=== PATIENT | female | born 1965 | race Caucasian/White ===

== ENCOUNTER 2018-11-28 18:15 | Emergency (ER) | payer OTHER, SELFPAY ==
[2018-11-28 18:17] VITALS: BP 166/81; PULSE 75; RESP 16; TEMP 36.4; O2SAT 97; BMI 31.8
--- NOTE | 2018-11-28 19:05 | ED.RN ---
PT AMBULATED FROM ER WITH SIGNIFICANT OTHER STATING SHE WOULD BE BACK IN THE MORNING
== END 2018-11-28 19:37 | disposition left against medical advice (07) ==
LOC: ED 19:35
PROVIDERS: Emergency Provider Emergency Medicine; Family Provider Internal Medicine; PCP Internal Medicine
DX: Z53.21 Procedure and treatment not carried out due to patient leaving prior to being seen by health care provider (principal)

== ENCOUNTER → 2018-11-29 11:03 | Outpatient (CLI) | payer OTHER, SELFPAY ==
[2018-11-28 18:17] VITALS: BMI 31.8
--- NOTE | 2018-11-29 11:14 | VDLE_ITS ---
Reason For Study: calf pain RIGHT LEFT CFV is compressible, spontaneous, phasic, GSV is normal. competent and demonstrates normal CFV is compressible, spontaneous, phasic, augmentation. competent, and demonstrates normal Procedure augmentation. Exam performed in department. FV is compressible, spontaneous, phasic, A preliminary report was called and/or faxed competent and demonstrates normal to DR PRATT. augmentation. POP V is compressible, spontaneous, phasic, competent and demonstrates normal augmentation. T/P Trunk is compressible. PTV is compressible. LT PerV is compressible. Interpretation Summary Deep veins of the left lower extremity are patent and compressible segmentally. There is no evidence of left lower extremity deep vein thrombosis. Valvular competence appears intact within the proximal deep venous system on the left . The left greater saphenous vein appears patent and compressible segmentally. Ordering Physician: Carline Pratt Referring Physician: Carline Pratt Performed By: Shital Davis, AIME, RVT
== END ==
PROVIDERS: Family Provider Internal Medicine; PCP Internal Medicine; Referring Provider Internal Medicine; Visit Provider Internal Medicine
DX: M79.662 Pain in left lower leg (principal)
CPT/HCPCS: 93971

== ENCOUNTER → 2020-01-06 13:18 | Outpatient (CLI) | payer OTHER, SELFPAY ==
--- NOTE | 2020-01-06 13:20 | BI_ITS ---
MAMMOGRAPHY - BILATERAL SCREENING 3-D TOMOSYNTHESIS REASON FOR EXAM: Female, 54 years old. Routine screening PERTINENT HISTORY: FAM HX OF SISTER @ AGE 67 - NO PREV SURG''S OTC HRT X 2 YRS - LOST 20#. TECHNIQUE: 2-D mammograms and 3-D Tomosynthesis of the breast (s) were performed. CAD was performed. COMPARISON: 2017 FINDINGS: The breast composition is composed of scattered fibroglandular density. Scattered benign calcifications are seen. No dense spiculated masses or suspicious microcalcifications are identified. No architectural distortion is identified. There is no skin thickening or retraction. There has been no significant change since the prior study. BI/SCREEN MAMM (CAD) W/MARIS BILAT IMPRESSION: No mammographic signs of malignancy. Routine yearly mammograms recommended. ASSESSMENT CATEGORY: BIRADS Category 2: Benign. A letter regarding these results will be sent to the patient by the facility within 30 days. FOLLOW UP RECOMMENDATION: Yearly follow up mammogram recommended. (A) Approximately 10% of breast cancers are not detected by mammography. A normal mammogram should not delay biopsy of a clinically suspicious abnormality. Electronically Signed: Oliver Colindres MD at 7:57 EDT , Service support ,
--- NOTE | 2020-01-06 13:33 | BD_ITS ---
STUDY: DUAL ENERGY X-RAY ABSORPTIOMETRY / DXA REASON FOR EXAM: Female, 54 years old. 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 COMPARISON: Comparison is made with prior study dated 05-04-11. FINDINGS: Lumbar Spine (L1-L4): g/cm2 (1.109) / T-score (-0.5) / Z-score (0.2) Findings are suggestive of normal bone density with a low fracture risk. Left Femur Total: g/cm2 (0.986) / T-score (-0.2) / Z-score (0.4) Left Femoral Neck: g/cm2 (1.012) / T-score (-0.2) / Z-score (0.8) Right Femur Total: g/cm2 (0.913) / T-score (-0.8) / Z-score (-0.2) Right Femoral Neck: g/cm2 (0.961) / T-score (-0.6) / Z-score (0.4) The T-Scores on the most recent prior examination were: Lumbar Spine (L1-L4): There has been worsening of bone density since the previous examination. Left Femur Total: which represents an improvement of 0.2%. Right Femur Total: which represents an improvement of 0.3%. BD/Dexa Bone Density Study IMPRESSION: The patient is considered normal as outlined below according to World Henry Organization (WHO) criteria with a low fracture risk. There has been improvement of bone density since the previous examination. Reference Information: The T-score is the number of standard deviations above or below the standard which is normal for young adults at their peak bone mineral density. The World Health Organization (WHO) interprets the T-scores as follows: Above -1 Normal bone density Between -1 and -2.5 Osteopenia Equal to / or below -2.5 Osteoporosis As a practical clinical guideline, osteopenia may be graded as follows: Mild -1 through -1.5 Moderate -1.6 through -2.0 Severe -2.1 through -2.4 The Z-score is the number of standard deviations above or below age-matched controls. A Z-score of less than -1.5 would be considered abnormal. References: 1. NIH Osteoporosis and Related Bone Diseases http://www.osteo.org 2. International Society for Clinical Densitometry http://www.iscd.org 3. National Osteoporosis Foundation http://www.nof.org Electronically Signed: Lemuel Ribeiro, at 13:19 EDT , Service support ,
== END ==
PROVIDERS: PCP Internal Medicine; Referring Provider Internal Medicine; Visit Provider Internal Medicine
DX: Z12.31 Encounter for screening mammogram for malignant neoplasm of breast (principal); Z78.0 Asymptomatic menopausal state
CPT/HCPCS: 77063; 77067; 77080

== ENCOUNTER 2021-09-22 07:43 | Outpatient (CLI) | payer OTHER, SELFPAY ==
--- NOTE | 2021-09-22 07:46 | BI_ITS ---
MAMMOGRAPHY - BILATERAL SCREENING REASON FOR EXAM: Female, 56 years old. Routine annual screening examination. PERTINENT HISTORY: Sister with breast cancer. TECHNIQUE: Digital bilateral breast maris (3D mammographic acquisition) in the CC and MLO projections. 2-D mediolateral oblique (MLO) and craniocaudad (CC) views of both breasts were obtained. CAD: Full Field Digital Mammography with Computer Added Detection was performed. COMPARISON: Comparison is made with prior study dated 01/06/2020. FINDINGS: Breast Composition: There are scattered areas of fibroglandular density. There are no dominant masses or suspicious calcifications. Stable benign-appearing bilateral axillary lymph nodes. No other significant abnormalities are identified. There has been no significant change since the prior study. BI/SCRN MAMM (CAD)W/MARIS BILAT IMPRESSION: Stable bilateral screening mammogram. Yearly follow-up mammogram recommended. (A) ASSESSMENT CATEGORY: BIRADS Category 2: Benign. A letter regarding these results will be sent to the patient by the facility within 30 days. Approximately 10% of breast cancers are not detected by mammography. A normal mammogram should not delay biopsy of a clinically suspicious abnormality. [id number] Electronically Signed: Lemuel Ribeiro MD at 8:55 EDT ,
== END 2021-09-22 23:59 | disposition home or self-care (01) ==
LOC: OPBI 07:44
PROVIDERS: PCP Internal Medicine; Visit Provider Internal Medicine
DX: Z12.31 Encounter for screening mammogram for malignant neoplasm of breast (principal)
CPT/HCPCS: 77063; 77067

== ENCOUNTER → 2023-08-14 | Outpatient (CLI) | payer OTHER, SELFPAY ==
--- NOTE | 2023-08-14 07:14 | CT_ITS ---
STUDY: CT ABDOMEN AND PELVIS WITHOUT CONTRAST REASON FOR EXAM: Female, 58 years old. LLQ Pain x few weeks RADIATION DOSAGE (If Supplied By Facility): CTDIvol = ( 11.76 ) mGy, DLP = ( 570.08 ) mGycm TECHNIQUE: Transaxial images were obtained from the dome of the diaphragm to the symphysis pubis with oral contrast, and without intravenous contrast. Sagittal and coronal images were reconstructed. Individualized dose optimization techniques were used for this CT. COMPARISON: None. FINDINGS: Minimal increased markings at the left lung base suggestive of left basilar atelectasis. The visualized portions of the heart are within normal limits. Normal liver. Normal gallbladder and extrahepatic biliary system. Normal spleen. Normal pancreas. Normal bilateral adrenal glands. Normal right kidney. Normal left kidney. Normal visualized stomach. Normal small intestine. Normal colon. The appendix is visualized and appears normal. There is scattered atherosclerotic calcification of the abdominal aorta, without a demonstrated aneurysm. Normal inferior vena cava. Normal retroperitoneum. Normal urinary bladder. Calcified phleboliths are seen in the pelvis. Normal abdominal wall. There are mild degenerative changes of the visualized lumbar spine. CT/Abdomen/Pelvis without Cont IMPRESSION: No acute abnormality is seen. Electronically Signed: Lemuel Ribeiro MD at 12:20 EST ,
--- OUTSIDE RECORDS SUMMARY | 2023-08-14 07:23 | XMS RPT_ITS | CCD ---
Author Name Unknown Address [address] [place] [address] Organization [facility] Care Team Providers Care Health Education Coordinator Name Role Phone Carline Pratt Unavailable Muriel Manuel Unavailable Tequila Dobbins Unavailable Unavailable Unavailable Unavailable Tiffany Ambrose Unavailable Unavailable Nhan Giraldo Unavailable [phone] Gravcarl, Sanjana Unavailable Unavailable Jack Cameron Unavailable Unavailable Jack Iraheta Unavailable Unavailable Jennifer Duggan Unavailable Unavailable Carline Pratt DO Unavailable [phone] Nhan Giraldo MD Unavailable [phone] Dr. Muriel Manuel MD Unavailable [phone] Jennifer Duggan LPN Unavailable Unavailable Unavailable Unavailable Gravcarl ALEXANDER, Sanjana Unavailable Unavailable Unavailable Unavailable Jack Iraheta LPN Unavailable Unavailable [place] CONTRACTING SPECIALIST, Rachel Unavailable Unavailable Unavailable Carline Pratt DO Unavailable Carline Pratt DO Primary Care Provider Carline Pratt DO Primary Care Provider Carline Pratt DO Attending Unavailable Carline Pratt DO Referring Unavailable Carline Pratt DO Consulting Unavailable Hugo EDMONDS, Eula Allen Primary Care Provider JOSE GILL Referring Unavailable JOSE GILL Attending Unavailable CARLINE PRATT Primary Care Unavailab JOSE Rios Referring Unavailable CARLINE PRATT Primary Care Unavailab LUCITA Bruno Referring Unavailable TERENCE, CARLINE TEQUILA Primary Care Unavailab chandra PRATT, CARLINE VU Primary Care Unavailab le DEBENEDICTGILL ALDRICH Attending Unavailab JOSE Rios Referring Unavailable TALAMPAS, EULA D Primary Care Unavailable TALAMPAS, EULA D Attending Unavailable BARBOSA, GRICELDA Referring Unavailable TALAMPAS, EULA D Primary Care Unavailable TALAMPAS, EULA D Primary Care Unavailable BARBOSA, GRICELDA Referring Unavailable TALAMPAS, EULA D Primary Care Unavailable BARBOSA, GRICELDA Referring Unavailable TALAMPAS, EULA D Primary Care Unavailable BARBOSA, GRICELDA Attending Unavailable Medications Current Medications Medication Drug Class(es) Dates Sig (Normalized) Sig (Original) ASCORBIC [id number] ORAL (6 sources) End: 10-17-2022 ASCORBIC [id number] ORAL Take by mouth. 0 10/17/2022 Discontinued Completed/Discontinued Medications Medication Drug Class(es) Dates Sig (Normalized) Sig (Original) amoxicillin 875 mg / clavulanate 125 mg oral tablet (8 sources) Penicillin-class Antibacterial Start: 12-16-2021 End: 03-24-2022 take 1 tablet by mouth twice daily Amoxicillin-Pot Clavulanate 875-125 MG Oral Tablet 1 (one) Tablet bid for 0 days Quantity: 20 {Tablet} Refills: 0 Ordered: 24-Mar-2022 Jack Iraheta LPN Start : 16-Dec-2021 End : 24-Mar-2022 Inactive Problems Active Problems Problem Classification Problem Date Documented Da te Episodic/Chronic Allergic reactions (20 sources) Contact dermatitis due to poison harriett; Translations: [Poison harriett] Resolved: 04-17-2011 05-04-2015 Episodic Anxiety disorders (10 sources) Generalized anxiety disorder; Translations: [Generalized anxiety disorder] Onset: 08-15-2005 02-06-2020 Chronic Asthma (20 sources) Extrinsic asthma, unspecified; Translations: [Allergic asthma] Resolved: 09-07-2009 10-13-2014 Chronic Past or Other Problems Problem Classification Problem Date Documented Da te Episodic/Chronic Blindness and vision defects (11 sources) Blurring of visual image; Translations: [Blurred vision, bilateral] Onset: 10-17-2022 12-15-2021 Episodic Cancer of cervix (10 sources) Atypical squamous cells of undetermined significance on cervical Papanicolaou smear; Translations: [Atypical squamous cells of undetermined significance on cytologic smear of cervix (ASC-US)] Onset: 05-23-2016 05-23-2016 Episodic Chronic obstructive pulmonary disease and bronchiectasis (20 sources) Bronchitis, not specified as acute or chronic; Translations: [BRONCHITIS, NOS (490.)] Resolved: 10-18-2009 10-13-2014 Episodic Deficiency and other anemia (20 sources) Anemia; Translations: [Anemia] Onset: 10-17-2022 03-01-2017 Episodic Headache; including migraine (20 sources) Headache; Translations: [Headache] Resolved: 10-18-2009 03-23-2015 Episodic Immunizations and screening for infectious disease (20 sources) Need for prophylactic vaccination and inoculation against influenza; Translations: [Needs influenza immunization] Onset: 10-17-2022 03-25-2020 Episodic Other circulatory disease (1 source) H/O: rheumatic fever; Translations: [Personal history of other diseases of the circulatory system] Onset: 10-17-2022 05-25-2023 Episodic Other connective tissue disease (20 sources) Lateral epicondylitis; Translations: [Tennis elbow] Onset: 10-17-2022 Resolved: 10-18-2009 05-28-2015 Episodic Results Test Name Value Interpretation Reference Range Facil ity Vital Signs Date Time Vital Sign Value Performing Clinician Facility 05-25-2023 08:08-0500 Body height 161 cm Eula Arias MD Work Phone: [facility] 05-25-2023 08:08-0500 Body temperature 98.4 [degF] Eula Arias MD Work Phone: [facility] 05-25-2023 08:08-0500 Body weight 90.27 kg Eula Arias MD Work Phone: [facility] 05-25-2023 08:08-0500 Diastolic blood pressure 62 mm[Hg] Eula Arias MD Work Phone: [facility] 05-25-2023 08:08-0500 Heart rate 74 /min Eula Arias MD Work Phone: [facility] 05-25-2023 08:08-0500 Respiratory rate 18 /min Eula Arias MD Work Phone: [facility] 05-25-2023 08:08-0500 SaO2% (BldA) [Mass fraction] 97 % Eula Arias MD Work Phone: [facility] 05-25-2023 08:08-0500 Systolic blood pressure 108 mm[Hg] Eula Arias MD Work Phone: [facility] 04-26-2023 09:06-0500 Body temperature 98.1 [degF] Jeane Athy PA-C Work Phone: [facility] 04-26-2023 09:06-0500 Body weight 90.27 kg Jeane Athy PA-C Work Phone: [facility] 04-26-2023 09:06-0500 Diastolic blood pressure 84 mm[Hg] Ejane Athy PA-C Work Phone: [facility] 04-26-2023 09:06-0500 Heart rate 68 /min Jeane Athy PA-C Work Phone: [facility] 04-26-2023 09:06-0500 Respiratory rate 18 /min Jeane Athy PA-C Work Phone: [facility] 04-26-2023 09:06-0500 SaO2% (BldA) [Mass fraction] 97 % Jeane Athy PA-C Work Phone: [facility] 04-26-2023 09:06-0500 Systolic blood pressure 129 mm[Hg] Jeane Athy PA-C Work Phone: [facility] 10-17-2022 07:03-0400 Body height 160 cm Gricelda Barbosa MANAGER GREEN[employer]GOLF SALES ASSOCIATE Work Phone: [facility] 10-17-2022 07:03-0400 Body weight 87.09 kg Gricelda Barbosa MANAGER GREEN[employer]OLF SALES ASSOCIATE Work Phone: [facility] 10-17-2022 07:03-0400 Diastolic blood pressure 82 mm[Hg] Gricelda Barbosa MANAGER GREEN[employer]OLF SALES ASSOCIATE Work Phone: [facility] 10-17-2022 07:03-0400 Heart rate 66 /min Gricelda Bricenos MANAGER GREEN[employer]OLF SALES ASSOCIATE Work Phone: [facility] 10-17-2022 07:03-0400 Respiratory rate 16 /min Gricelda Bricenos MANAGER GREEN[employer]OLF SALES ASSOCIATE Work Phone: [facility] 10-17-2022 07:03-0400 SaO2% (BldA) [Mass fraction] 98 % Gricelda Bricenos MANAGER GREEN[employer]OLF SALES ASSOCIATE Work Phone: [facility] 10-17-2022 07:03-0400 Systolic blood pressure 120 mm[Hg] Gricelda Barbosa MANAGER GREEN[employer]OLF SALES ASSOCIATE Work Phone: [facility] 12-15-2021 13:38-0400 Body height 158.75 cm Sanjana Man [facility] Work Phone: 12-15-2021 13:38-0400 Body mass index (BMI) [Ratio] 35.46 kg/m2 Sanjana [facility]; [facility] Work Phone: 12-15-2021 13:38-0400 Body surface area Derived from formula 1.91 m2 [facility] Work Phone: 12-15-2021 13:38-0400 Body temperature 97.3 [degF] Sanjana Man [facility] Comprehensiv e Internal Medicine; [facility] Work Phone: Encounters Encounter Date Encounter Type Care Provider Facility Start: 05-25-2023 End: 05-26-2023 ambulatory EULA ARIAS Facility:[facility] Start: 05-25-2023 End: 05-25-2023 Office outpatient visit 25 minutes Eula Arias MD Work Phone: Internal Medicine [place] Procedures Date Procedure Procedure Detail Performing Clinician Start: 04-26-2023 Urnls dip stick/tablet rgnt auto w/o microscopy Swati Greco MANAGER GREEN.CONTRACTING SPECIALIST Work Phone: Start: 10-19-2022 End: 10-19-2022 Mammography Gricelda Barbosa MANAGER GRE[employer] SALES ASSOCIATE Work Phone: Start: 10-17-2022 Lipid 1996 panel - Serum or Plasma Screen [facility] Start: 08-17-2022 Computerized ophthalmic imaging retina Jose Gill MD, PhD Work Phone: Start: 05-18-2022 Computerized ophthalmic imaging retina Jose Gill MD, PhD Work Phone: Start: 02-23-2022 Fundus photography w/interpretation & report Castillo Jacobsen MD Work Phone: Start: 02-23-2022 Computerized ophthalmic imaging retina Javier Hernandez MD Work Phone: Start: 09-22-2021 End: 09-22-2021 SCRN MAMM (CAD)W/MARIS BILAT Comments: See Note; NOTES: [facility] Imaging Services [address] [place] [address] SCRN MAMM (CAD)W/MARIS BILAT MR#: [id number] Acct: [id number] Name: ADRIANNE CHAIDEZ Rep #: [id number] : 1965 F 56 From: [address]uel [address] MD PCP: Dr. Carline Pratt, Status: [facility] Study: SCRN MAMM (CAD)W/MARIS BILAT Date of Exam: 01/06 Exam# [id number] Ordering Dr: Carline Pratt DO MAMMOGRAPHY - BILATERAL SCREENING REASON FOR EXAM: Female, 56 years old. Routine annual screening examination. PERTINENT HISTORY: Sister with breast cancer. TECHNIQUE: Digital bilateral breast maris (3D mammographic acquisition) in the CC and MLO projections. 2-D mediolateral oblique (MLO) and craniocaudad (CC) views of both breasts were obtained. CAD: Full Field Digital Mammography with Computer Added Detection was performed. COMPARISON: Comparison is made with prior study dated 01/06/2020. FINDINGS: Breast Composition: There are scattered areas of fibroglandular density. There are no dominant masses or suspicious calcifications. Stable benign-appearing bilateral axillary lymph nodes. No other significant abnormalities are identified. There has been no significant change since the prior study. BI/SCRN MAMM (CAD)W/MARIS BILAT IMPRESSION: Stable bilateral screening mammogram. Yearly follow-up mammogram recommended. (A) ASSESSMENT CATEGORY: BIRADS Category 2: Benign. A letter regarding these results will be sent to the patient by the facility within 30 days. Approximately 10% of breast cancers are not detected by mammography. A normal mammogram should not delay biopsy of a clinically suspicious abnormality. [id number] Electronically Signed: Lemuel Ribeiro MD at 8:55 EDT Reading Location ID and State: [facility] / [place] , Service support , CC: Dr. Carline Pratt DO Manager Web: Signed Carline Pratt DO Work Phone: Start: 06-21-2021 End: 06-21-2021 Urgent Care Visit Report Comments: See Note; NOTES: [facility] [address] [place] [address] OFFICE VISIT Date of Service: 06/21/21 MR#: [id number] Acct: [id number] Name: ADRIANNE CHAIDEZ Rep #: [id number] : 1965 Provider: GUALBERTO Cheek Age/Sex: 56/F Location: [facility] [place] Status: Signed Intake Vital Signs 06/21/21 08:37 Height 5 ft 3 in Weight: 199 lb BMI 35.2 BP 118/72 Blood Pressure Location Lt brachial Position Sitting Respiration 16 Pulse 67 Pulse Source Monitor Temp 97.5 F L Temp Source Temporal Pulse Oximetry (%) 98 Oxygen Delivery Method room air Intake Visit Reasons: SORE THOAT Allergies No Known Allergies Allergy (Verified 11/28/18 18:16) [facility] Social History Smoking Status: Never smoker HPI HPI Details: ADRIANNE CHAIDEZ, is a 56 F who presents to the office today for complaint of sore throat for the past 2 days. Patient describes a sore throat as itchy and made worse with postnasal drainage. She denies fever, chills, sweats. No cough, shortness of breath or difficulty breathing. No nausea, vomiting or diarrhea. No loss of taste or smell. Patient is concerned that she may have had exposure to Covid recently and is requesting a Covid test. No other associated symptoms or alleviating/aggravating factors. ROS Const Constitutional: Positive for other (6 system ROS completed with pertinent findings in the HPI otherwise normal.) Exam Const General: cooperative and healthy appearing HENMT Head: normal to inspection Ears: hearing grossly normal bilaterally, TM's normal bilaterally and EAC's normal Nose: external nose normal and nasal discharge clear Mouth: oral mucosae normal Throat: abnormal tonsil bilaterally Resp Effort Inspection: normal respiratory effort Auscultation: Bilateral: Clear to Auscultation Cardio Palpation: normal PMI Rate: regular rate Rhythm: regular rhythm Neuro General: patient alert and CN's II-XI intact bilaterally Psych Appearance: grossly normal Mental Status: mental status grossly normal Results POC SARS AG POC SARS AG Negative Last Edit by Vanessa Garvey on 06/21/21 08:50 Coding Level of Care Code Off vis,new,level 3 Diagnoses Acute pharyngitis J02.9 Assessment and Plan Assessment and Plan (1) Acute pharyngitis: Status: Acute Plan - GUALBERTO De Santiago: Patient tested negative for Covid in the office today. Encouraged to get plenty of rest, drink lots of clear liquids, and use Tylenol or Ibuprofen (unless contraindicated) for fever and comfort. Patient also educated on other symptomatic management techniques. To be seen in 7-10 days if no improvement; sooner if worsening of symptoms. Patient verbalized understanding and agreement with all the above. Plan Details Other Orders: Orders: POC Rapid SARS Antigen Today 06/21/21 1155 <Electronically signed by Joe BURCIAGA> Date Joe Arboleda Signature: Date (if applicable) CC: Carline Pratt DO Work Phone: Start: 02-09-2020 Yamil Hernandez MD Work Phone: Start: 01-06-2020 End: 01-12-2020 Dexa Bone Density Study Comments: See Note; NOTES: [facility] Imaging Services [address] [place] [address] Dexa Bone Density Study MR#: [id number] Acct: [id number] Name: ADRIANNE CHAIDEZ Rep #: [id number] : 1965 F 54 From: [address] MD PCP: Dr. Carline Pratt, [facility] Study: Dexa Bone Density Study Date of Exam: 01/06/20 Exam# [id number] Ordering Dr: Carline Pratt DO STUDY: DUAL ENERGY X-RAY ABSORPTIOMETRY / DXA REASON FOR EXAM: Female, 54 years old. 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 COMPARISON: Comparison is made with prior study dated 05-04-11. FINDINGS: Lumbar Spine (L1-L4): g/cm2 (1.109) / T-score (-0.5) / Z-score (0.2) Findings are suggestive of normal bone density with a low fracture risk. Left Femur Total: g/cm2 (0.986) / T-score (-0.2) / Z-score (0.4) Left Femoral Neck: g/cm2 (1.012) / T-score (-0.2) / Z-score (0.8) Right Femur Total: g/cm2 (0.913) / T-score (-0.8) / Z-score (-0.2) Right Femoral Neck: g/cm2 (0.961) / T-score (-0.6) / Z-score (0.4) The T-Scores on the most recent prior examination were: Lumbar Spine (L1-L4): There has been worsening of bone density since the previous examination. Left Femur Total: which represents an improvement of 0.2%. Right Femur Total: which represents an improvement of 0.3%. BD/Dexa Bone Density Study IMPRESSION: The patient is considered normal as outlined below according to World Henry Organization (WHO) criteria with a low fracture risk. There has been improvement of bone density since the previous examination. Reference Information: The T-score is the number of standard deviations above or below the standard which is normal for young adults at their peak bone mineral density. The World Health Organization (WHO) interprets the T-scores as follows: Above -1 Normal bone density Between -1 and -2.5 Osteopenia Equal to / or below -2.5 Osteoporosis As a practical clinical guideline, osteopenia may be graded as follows: Mild -1 through -1.5 Moderate -1.6 through -2.0 Severe -2.1 through -2.4 The Z-score is the number of standard deviations above or below age-matched controls. A Z-score of less than -1.5 would be considered abnormal. References: 1. NIH Osteoporosis and Related Bone Diseases http://www.osteo.org 2. International Society for Clinical Densitometry http://www.iscd.org 3. National Osteoporosis Foundation http://www.nof.org Electronically Signed: Lemuel Ribeiro, at 13:19 EDT , Service support , CC: Dr. Carline Pratt, Manager Web: Signed Carline Pratt Work Phone: Start: 01-06-2020 End: 01-07-2020 SCREEN MAMM (CAD) W/MARIS BILAT Comments: See Note; NOTES: [facility] Imaging Services [address] [place] [address] SCREEN MAMM (CAD) W/MARIS BILAT MR#: [id number] Acct: [id number] Name: ADRIANNE CHAIDEZ Rep #: [id number] : 1965 F 54 From: Kiran Colindres MD PCP: Dr. Carline Pratt DO Status: REG [facility] Study: SCREEN MAMM (CAD) W/MARIS BILAT Date of Exam: 0 01/06/20 Exam# [id number] Ordering Dr: Carline Pratt DO MAMMOGRAPHY - BILATERAL SCREENING 3-D TOMOSYNTHESIS REASON FOR EXAM: Female, 54 years old. Routine screening PERTINENT HISTORY: FAM HX OF SISTER @ AGE 67 - NO PREV SURG''S OTC HRT X 2 YRS - LOST 20#. TECHNIQUE: 2-D mammograms and 3-D Tomosynthesis of the breast (s) were performed. CAD was performed. COMPARISON: 2017 FINDINGS: The breast composition is composed of scattered fibroglandular density. Scattered benign calcifications are seen. No dense spiculated masses or suspicious microcalcifications are identified. No architectural distortion is identified. There is no skin thickening or retraction. There has been no significant change since the prior study. BI/SCREEN MAMM (CAD) W/MARIS BILAT IMPRESSION: No mammographic signs of malignancy. Routine yearly mammograms recommended. ASSESSMENT CATEGORY: BIRADS Category 2: Benign. A letter regarding these results will be sent to the patient by the facility within 30 days. FOLLOW UP RECOMMENDATION: Yearly follow up mammogram recommended. (A) Approximately 10% of breast cancers are not detected by mammography. A normal mammogram should not delay biopsy of a clinically suspicious abnormality. Electronically Signed: Oliver Colindres MD at 7:57 EDT , Service support , CC: Dr. Carline Pratt DO Manager Web: Signed Carline Pratt Work Phone: Start: 11-29-2018 End: 11-29-2018 Venous Duplex Lower Extremity Comments: See Note; NOTES: [facility] Services [address] [place] [address] Venous Duplex US, Unilateral 11/29/18 1120 MR#: [id number] Acct: [id number] Name: ADRIANNE CHAIDEZ Rep #: [id number] : 1965 53 From: Jarrod Hannon MD Attending Dr: Carline Pratt DO Status: REG CLI Ordering Dr: Carline Pratt DO Date: 11/29/18 Location: [facility] Sex: F C Admitted: Reason For Study: calf pain RIGHT LEFT CFV is compressible, spontaneous, phasic, GSV is normal. competent and demonstrates normal CFV is compressible, spontaneous, phasic, augmentation. competent, and demonstrates normal Procedure augmentation. Exam performed in department. FV is compressible, spontaneous, phasic, A preliminary report was called and/or faxed competent and demonstrates normal to DR PRATT. augmentation. POP V is compressible, spontaneous, phasic, competent and demonstrates normal augmentation. T/P Trunk is compressible. PTV is compressible. LT PerV is compressible. Interpretation Summary Deep veins of the left lower extremity are patent and compressible segmentally. There is no evidence of left lower extremity deep vein thrombosis. Valvular competence appears intact within the proximal deep venous system on the left . The left greater saphenous vein appears patent and compressible segmentally. Ordering Physician: Carline Pratt Referring Physician: Carline Pratt Performed By: Shital Davis, AIME, RVT 11/29/18 1620 Date Jarrod Hannon MD CC: Carline Pratt DO Date Dictated: 11/29/18 1120 Date Transcribed: 11/29/18 1620 Manager Web: Signed Carline Pratt Work Phone: Start: 05-28-2017 Mammography Javier Hernandez MD Work Phone: Plan of Treatment Date Care Activity Detail Author Start: 10-18-2027 Lipid 1996 panel - Serum or Plasma Lipid Screening [facility] Start: 10-18-2027 LIPID SCREEN LIPID SCREEN [facility] Start: 10-17-2025 DIABETES SCREEN DIABETES SCREEN [facility] Start: 10-17-2025 Diabetes Screening Diabetes Screenin g [facility] Start: 02-08-2025 Colonoscopy COLONOSCOPY [facility] Start: 02-08-2025 COLORECTAL CANCER SCREENING COLORECTAL CANCER SCREENING [facility] Start: 11-17-2023 End: 02-16-2024 CBC panel - Blood by Automated count CBC Lab Routine Encounter for long-term current use of medication Expected: 11/17/2023 (Approximate), Expires: 02/16/2024 [facility] Work Phone: Immunizations Immunization Date Immunization Notes Care Provider Alex sauer 03-17-2023 Influenza, injectabl e, Madin Montgomery Canine Kidney, preservative free, quadrivalent Eula Arias MD Work Phone: [facility] 05-27-2022 zoster vaccine recombinant Gricelda Barbosa MANAGER GREEN[employer]OLF SALES ASSOCIATE Work Phone: [facility] Work Phone: 03-25-2022 Influenza, injectabl e, Madin Montgomery Canine Kidney, preservative free, quadrivalent Gricelda Barbosa MANAGER GREEN[employer]GOLF SALES ASSOCIATE Work Phone: [facility] Work Phone: 03-25-2022 zoster vaccine recombinant Gricelda Barbosa MANAGER GREEN[employer]GOLF SALES ASSOCIATE Work Phone: [facility] Work Phone: 03-25-2022 influenza virus vaccine, unspecified formulation Screen Wstr [facility] 10-01-2021 COVID-19 original vaccine, age 12+ yr, monovalent (PFIZER-BIONTECH - NAVARRETE TOP) Gricelda Barbosa MANAGER GREEN.GOLF SALES ASSOCIATE Work Phone: [facility] Work Phone: 04-30-2021 COVID-19 original vaccine, age 12+ yr, monovalent (PFIZER-BIONTECH - PURPLE TOP) Gricelda Barbosa MANAGER GREEN.GOLF SALES ASSOCIATE Work Phone: [facility] Work Phone: 04-18-2021 COVID-Pfizer (30 MCG/0.3 ML) Carline Pratt DO Work Phone: [facility] Work Phone: 03-17-2021 Influenza, injectabl e, Madin Montgomery Canine Kidney, preservative free, quadrivalent Gricelda Barbosa MANAGER GREEN.GOLF SALES ASSOCIATE Work Phone: [facility] Work Phone: 09-23-2020 COVID-19 original vaccine, full dose, monovalent (MODERNA) Gricelda Barbosa MANAGER GREEN.GOLF SALES ASSOCIATE Work Phone: [facility] Work Phone: 08-26-2020 COVID-19 original vaccine, full dose, monovalent (MODERNA) Gricelda Barbosa MANAGER GREEN.GOLF SALES ASSOCIATE Work Phone: [facility] Work Phone: 06-18-2020 COVID-Moderna (100 MCG/0.5 ML) Carline Pratt DO Work Phone: [facility] Work Phone: 03-14-2020 influenza, injectabl e, quadrivalent, preservative free Gricelda Barbosa MANAGER GREEN.GOLF SALES ASSOCIATE Work Phone: [facility] Work Phone: 03-04-2019 influenza, injectabl e, quadrivalent, preservative free Gricelda Barbosa MANAGER GREEN.GOLF SALES ASSOCIATE Work Phone: [facility] Work Phone: 04-02-2018 influenza, injectabl e, quadrivalent, preservative free Gricelda Barbosa MANAGER GREEN.GOLF SALES ASSOCIATE Work Phone: [facility] Work Phone: 02-09-2000 diphtheria and tetan us toxoids, adsorbed for pediatric use Javier Hernandez MD Work Phone: [facility] Work Phone: Payers Date Payer Category Payer Private Health Insurance [id number] 2019 Private Health Insurance [id number] 2019 Private Health Insurance [id number] 2018 Unknown [id number] 2012 Unknown [id number] 2009 Private Health Insurance [id number] 2006 Private Health Insurance [id number] 1966 Unknown [id number] Unknown Unknown [id number] Social History Date Type Detail Facility Start: 06-30-2022 End: 10-10-2022 Caffeine Use Caffeine Use [facility] Work Phone: Functional Status Date Assessment Result Facility 03-12-2020 LP-IR Score LP-IR Score 30 [facility] Work Phone: Clinical Notes 02-23-2022 to 05-25-2023 Eula Arias MD - 05/25/2023 8:05 AM Jeane House PA-C - 04/26/2023 9:42 AM ESTLetter - Mammography Coordinator - 10/19/2022 12:27 PM Shruthi Willoughby Mammo Tech - 10/19/2022 7:30 AM EDT Note Date & Type Note Facility 05-25-2023 Note HNO ID: [id number] Author: Eula Arias MD Service: ? Author Type: Physician Type: Progress Notes Filed: 05/25/2023 12:08 PM Note Text: This note was created using NoteWriter. Subjective Adrianne Chaidez is a 58 year old female. HISTORY Adrianne Chaidez is a 58 year old lady here to be formally established with me. Established with us at Routine Medical appointment with WILLIAM Marino in October 2022. 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 Noted sister from complications of liver cirrhosis that was just recently diagnosed before she . Does not know the cause of the cirrhosis. Discussed common causes. She walks daily. Eats healthy diet. Uses olive oil (EVOO) only. 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 THERAPEUTIC MULTIVITAMIN TAB one tab daily furosemide (LASIX) 20 mg tablet Take 1 tablet by mouth once daily as needed (lower extremity edema). No current facility-administered medications for this visit. ALLERGIES No Known Allergies PAST SURGICAL HISTORY Procedure Laterality Date ANKLE RIGHT 06/15/2012 surgery COLONOSCOPY 2012 COLPOSCOPY CERVIX UPPER/ADJACENT VAGINA 08/26/2004 mild to moderate dysplasia of cervix KERATOMILEUSIS Bilateral Dr. Rodriguez FAMILY HISTORY Problem Relation Age of Onset Hypertension Mother Diabetes Mother Cancer Father laryngeal Diabetes Sister Colon Cancer Sister 50 2014-16 yr remission Diabetes Sister other (Liver cirrhosis [other]) Sister Breast Cancer Sister 63 lumpectomy/chemo 2012 Colon Cancer Brother 74 Hypertension Brother Stroke Brother Diabetes Brother Cancer Other liver-niece Social History Tobacco Use Smoking status: Never Passive exposure: Never Smokeless tobacco: Never Vaping Use Vaping Use: Never used Substance Use Topics Alcohol use: Yes Comment: 1-2 per month Drug use: No Review of Systems Objective BP 108/62 Pulse 74 Temp 36.9 ?C (98.4 ?F) Resp 18 Ht 161 cm (5' 3.39 ) Wt 90.3 kg (199 lb) LMP 07/19/2019 (Approximate) SpO2 97% BMI 34.82 kg/m? Last 5 Encounter Wt Readings: Date: Wt: 05/25/2023 90.3 kg (199 lb) 04/26/2023 90.3 kg (199 lb) 10/17/2022 87.1 kg (192 lb) 02/06/2020 80.7 kg (178 lb) 12/24/2019 80.7 kg (178 lb) No waist measurement recorded Estimated body mass index is 34.82 kg/m? as calculated from the following: Height as of this encounter: 161 cm (5' 3.39 ). Weight as of this encounter: 90.3 kg (199 lb). Last 5 Encounter BP Readings: Date: BP: 05/25/2023 108/62 04/26/2023 129/84 10/17/2022 120/82 02/09/2020 112/74 12/24/2019 140/87 Physical Exam Vitals reviewed. Constitutional: Appearance: Normal appearance. She is well-developed. She is obese. HENT: Head: Normocephalic and atraumatic. Right Ear: External ear normal. Left Ear: External ear normal. Nose: Nose normal. Mouth/Throat: Mouth: Mucous membranes are moist. Pharynx: Oropharynx is clear. Eyes: Conjunctiva/sclera: Conjunctivae normal. Neck: Thyroid: No thyromegaly. Vascular: No carotid bruit. Cardiovascular: Rate and Rhythm: Normal rate and regular rhythm. Pulses: Normal pulses. Heart sounds: Normal heart sounds. No murmur heard. No friction rub. No gallop. Pulmonary: Effort: Pulmonary effort is normal. Breath sounds: Normal breath sounds. Abdominal: General: Bowel sounds are normal. There is no distension. Palpations: Abdomen is soft. There is no mass. Tenderness: There is no abdominal tenderness. Musculoskeletal: General: No deformity. Normal range of motion. Right lower leg: No edema. Left lower leg: No edema. Lymphadenopathy: Cervical: No cervical adenopathy. Skin: General: Skin is warm and dry. Coloration: Skin is not jaundiced or pale. Findings: No rash. Neurological: General: No focal deficit present. Mental Status: She is alert and oriented to person, place, and time. Cranial Nerves: No cranial nerve deficit. Sensory: No sensory deficit. Motor: No abnormal muscle tone. Coordination: Coordination normal. Deep Tendon Reflexes: Reflexes normal. Psychiatric: Attention and Perception: Attention and perception normal. Mood and Affect: Mood and affect normal. Speech: Speech normal. Behavior: Behavior normal. Thought Content: Thought content normal. Cognition and Memory: Cognition normal. Judgment: Judgment normal. Labs done after saw Gricelda: Component Latest Ref Rng AND Units 10/17/2022 WBC 3.70 - 11.00 k/uL 8.31 RBC 3.90 - 5.20 m/uL 4.36 (more content not included)... [facility] 05-25-2023 History of Present illness Narrative This note was created using NoteWriter. Subjective Adrianne Chaidez is a 58 year old female. HISTORY Adrianne Chaidez is a 58 year old lady here to be formally established with me. Established with us at Routine Medical appointment with WILLIAM Marino in October 2022. 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 Noted sister from complications of liver cirrhosis that was just recently diagnosed before she . Does not know the cause of the cirrhosis. Discussed common causes. She walks daily. Eats healthy diet. Uses olive oil (EVOO) only. 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 THERAPEUTIC MULTIVITAMIN TAB one tab daily furosemide (LASIX) 20 mg tablet Take 1 tablet by mouth once daily as needed (lower extremity edema). No current facility-administered medications for this visit. ALLERGIES No Known Allergies PAST SURGICAL HISTORY Procedure Laterality Date ANKLE RIGHT 06/15/2012 surgery COLONOSCOPY 2012 COLPOSCOPY CERVIX UPPER/ADJACENT VAGINA 08/26/2004 mild to moderate dysplasia of cervix KERATOMILEUSIS Bilateral Dr. Rodriguez FAMILY HISTORY Problem Relation Age of Onset Hypertension Mother Diabetes Mother Cancer Father laryngeal Diabetes Sister Colon Cancer Sister 50 2014-16 yr remission Diabetes Sister other (Liver cirrhosis [other]) Sister Breast Cancer Sister 63 lumpectomy/chemo 2012 Colon Cancer Brother 74 Hypertension Brother Stroke Brother Diabetes Brother Cancer Other liver-niece Social History Tobacco Use Smoking status: Never Passive exposure: Never Smokeless tobacco: Never Vaping Use Vaping Use: Never used Substance Use Topics Alcohol use: Yes Comment: 1-2 per month Drug use: No Review of Systems Objective BP 108/62 Pulse 74 Temp 36.9 C (98.4 F) Resp 18 Ht 161 cm (5' 3.39 ) Wt 90.3 kg (199 lb) LMP 07/19/2019 (Approximate) SpO2 97% BMI 34.82 kg/m Last 5 Encounter Wt Readings: Date: Wt: 05/25/2023 90.3 kg (199 lb) 04/26/2023 90.3 kg (199 lb) 10/17/2022 87.1 kg (192 lb) 02/06/2020 80.7 kg (178 lb) 12/24/2019 80.7 kg (178 lb) No waist measurement recorded Estimated body mass index is 34.82 kg/m as calculated from the following: Height as of this encounter: 161 cm (5' 3.39 ). Weight as of this encounter: 90.3 kg (199 lb). Last 5 Encounter BP Readings: Date: BP: 05/25/2023 108/62 04/26/2023 129/84 10/17/2022 120/82 02/09/2020 112/74 12/24/2019 140/87 Physical Exam Vitals reviewed. Constitutional: Appearance: Normal appearance. She is well-developed. She is obese. HENT: Head: Normocephalic and atraumatic. Right Ear: External ear normal. Left Ear: External ear normal. Nose: Nose normal. Mouth/Throat: Mouth: Mucous membranes are moist. Pharynx: Oropharynx is clear. Eyes: Conjunctiva/sclera: Conjunctivae normal. Neck: Thyroid: No thyromegaly. Vascular: No carotid bruit. Cardiovascular: Rate and Rhythm: Normal rate and regular rhythm. Pulses: Normal pulses. Heart sounds: Normal heart sounds. No murmur heard. No friction rub. No gallop. Pulmonary: Effort: Pulmonary effort is normal. Breath sounds: Normal breath sounds. Abdominal: General: Bowel sounds are normal. There is no distension. Palpations: Abdomen is soft. There is no mass. Tenderness: There is no abdominal tenderness. Musculoskeletal: General: No deformity. Normal range of motion. Right lower leg: No edema. Left lower leg: No edema. Lymphadenopathy: Cervical: No cervical adenopathy. Skin: General: Skin is warm and dry. Coloration: Skin is not jaundiced or pale. Findings: No rash. Neurological: General: No focal deficit present. Mental Status: She is alert and oriented to person, place, and time. Cranial Nerves: No cranial nerve deficit. Sensory: No sensory deficit. Motor: No abnormal muscle tone. Coordination: Coordination normal. Deep Tendon Reflexes: Reflexes normal. Psychiatric: Attention and Perception: Attention and perception normal. Mood and Affect: Mood and affect normal. Speech: Speech normal. Behavior: Behavior normal. Thought Content: Thought content normal. Cognition and Memory: Cognition normal. Judgment: Judgment normal. Labs done after saw Gricelda: Component Latest Ref Rng & Units 10/17/2022 WBC 3.70 - 11.00 k/uL 8.31 RBC 3.90 - 5.20 m/uL 4.36 Hemoglobin 11.5 - 15.5 g/dL 13.4 Hematocrit 36.0 - 46.0 % 40.6 MCV 80.0 - 100.0 fL 93.1 MCH 26.0 - 34.0 pg 30.7 MCHC 30.5 - 36.0 g/dL 33.0 RDW-CV 11.5 - 15.0 % 12.9 Platelet Count 150 - 400 k/uL 274 MPV 9.0 - 12.7 fL 10.8 Neut% % 48.2 Abs Neut (ANC) 1.45 - 7.50 k/uL 4.00 Lymph% % 37.2 Abs Lymph 1.00 - 4.00 k/uL 3.09 [place]% % 6.5 Abs [place] <0.87 k/uL 0.54 Eosin% % 7.1 Abs Eosin <0.46 k/uL 0.59 (H) Baso% % 0.8 Abs Baso <0.11 k/uL 0.07 Immature Gran % % 0.2 IMMATURE GRANS (ABS) <0.10 k/uL <0.03 NRBC /100 WBC 0.0 Absolute nRBC <0.01 k/uL <0.01 DTYPE Auto Protein, Total 6.3 - 8.0 g/dL 7.6 Albumin 3.9 - 4.9 g/dL 4.5 Calcium 8.5 - 10.2 mg/dL 10.0 Bilirubin, Total 0.2 - 1.3 mg/dL 0.3 Alkaline Phosphatase 34 - 123 U/L 117 AST 13 - 35 U/L 24 ALT 7 - 38 U/L 32 Glucose 74 - 99 mg/dL 92 BUN 7 - 21 mg/dL 14 Creatinine 0.58 - 0.96 mg/dL 0.82 Sodium 136 - 144 mmol/L 142 Potassium 3.7 - 5.1 mmol/L 4.6 Chloride 97 - 105 mmol/L 103 CO2 22 - 30 mmol/L 26 Anion Gap 9 - 18 mmol/L 13 eGFR >=60 mL/min/1.73m 84 Cholesterol, Total <200 mg/dL 226 (H) Triglyceride <150 mg/dL 209 (H) HDL Cholesterol >39 mg/dL 59 Non HDL Cholesterol <130 mg/dL 167 (H) Fasting Time hrs 10 VLDL Cholesterol <30 mg/dL 42 (H) TC:HDL Ratio <5.10 3.83 LDL Cholesterol <100 mg/dL 125 (H) LDL:HDL Ratio <2.54 2.12 HIV 12 Combo (Ag/Ab) Nonreactive Nonreactive HIV 1/2 Ab HIV Interpretation Hep C Antibody IA Negative Negative The 10-year ASCVD risk score (Aracely SIMPSON, et al., 2019) is: 2.6% Values used to calculate the score: Age: 58 years Sex: Female Is Non- : No Diabetic: No Tobacco smoker: No Systolic Blood Pressure: 129 mmHg Is BP treated: No HDL Cholesterol: 59 mg/dL Total Cholesterol: 226 mg/dL Assessment and Plan Encounter Diagnosis ICD-10-CM 1. Hypercholesteremia E78.00 LIPID PANEL BASIC Well controlled. Stay on Crestor at same dose 2. Blurry vision, bilateral H53.8 Reviewed diagnosis of genetic disorder; follows with kennel aide at main campus 3. Bilateral lower extremity edema R60.0 Treat in summer as needed with furosemide 4. BMI 34.0-34.9,adult Z68.34 Continue efforts at healthy diet and regular exercise as discussed. 5. Encounter for long-term current use of medication Z79.899 COMP METABOLIC PANEL CBC 58 year old lady here to be formally established with me. History and medications reviewed. Epic updated as needed. Above issues addressed with patient. Patient involved in shared decision making for management of medical issues. Refills taken care of and meds adjusted as indicated after reviewed history, exam and labs. Health Maintenance reviewed. Updated record and/or ordered tests as recorded. Encouraged on efforts at healthy diet and regular exercise and adequate sleep. Needs to keep working on diet and exercise with lifestyle changes for effective weight loss as well as prevention of DM, and control of BP and lipids. Cleaned up problem list (there was a diagnosis that suspect was from family member--'s grandmother--who had similar name and a couple times diagnoses that did not make sense got on her chart; this time was dementia diagnosis). Form for Employee Health Plan completed. Labs for yearly ordered. Eula Arias MD documented in this encounter [facility] 04-26-2023 Note HNO ID: [id number] Author: Jeane Barrios PA-C Service: ? Author Type: Physician Paper Machine Backtender Type: Progress Notes Filed: 04/26/2023 9:44 AM Note Text: This note was created using Gauzyriter. Subjective Adrianne Chaidez is a 58 year old female. HPI Patient presents with a chief complaint of dysuria, frequency, hematuria over the past 3 days. She just noticed the blood in her urine this morning. No diarrhea or vomiting. Denies back pain. She has had some lower abdominal pain. She has never had a UTI previously. Denies vaginal itching or discharge. Review of Systems Constitutional: Negative. HENT: Negative. Respiratory: Negative. Cardiovascular: Negative. Gastrointestinal: Negative. Genitourinary: Positive for dysuria, frequency, hematuria, pelvic pain and urgency. Negative for vaginal bleeding, vaginal discharge and vaginal pain. Musculoskeletal: Negative for back pain. All other systems reviewed and are negative. PAST MEDICAL HISTORY Diagnosis Date Dysplasia of cervix, unspecified Major depressive disorder, single episode, mild (HCC) Current Outpatient Medications Medication Sig Dispense Refill rosuvastatin (CRESTOR) 5 mg tablet Take 1 tablet by mouth once daily. 90 tablet 3 THERAPEUTIC MULTIVITAMIN TAB one tab daily 0 nitrofurantoin monohydrate and macrocrystal (MACROBID) 100 mg capsule Take 1 capsule by mouth two times a day with meals for 5 days. 10 capsule 0 No current facility-administered medications for this visit. PAST SURGICAL HISTORY Procedure Laterality Date ANKLE RIGHT 06/15/2012 surgery COLONOSCOPY 2012 COLPOSCOPY CERVIX UPPER/ADJACENT VAGINA 08/26/2004 mild to moderate dysplasia of cervix KERATOMILEUSIS Bilateral Dr. Rodriguez FAMILY HISTORY Problem Relation Age of Onset Hypertension Mother Diabetes Mother Cancer Father laryngeal Colon Cancer Brother 74 Hypertension Brother Stroke Brother Diabetes Brother Diabetes Sister Colon Cancer Sister 50 2014-16 yr remission Cancer Other liver-niece Breast Cancer Sister 63 lumpectomy/chemo 2013 Social History Tobacco Use Smoking status: Never Passive exposure: Never Smokeless tobacco: Never Vaping Use Vaping Use: Never used Substance Use Topics Alcohol use: Yes Comment: 1-2 per month Drug use: No Objective BP 129/84 Pulse 68 Temp 36.7 ?C (98.1 ?F) Resp 18 Wt 90.3 kg (199 lb) LMP 07/19/2019 (Approximate) SpO2 97% BMI 35.25 kg/m? Physical Exam Vitals reviewed. Constitutional: Appearance: Normal appearance. HENT: Head: Normocephalic and atraumatic. Cardiovascular: Rate and Rhythm: Normal rate and regular rhythm. Heart sounds: Normal heart sounds. Pulmonary: Effort: Pulmonary effort is normal. Breath sounds: Normal breath sounds. Musculoskeletal: Cervical back: Neck supple. Skin: General: Skin is warm and dry. Neurological: Mental Status: She is alert. Assessment and Plan ASSESSMENT/PLAN: 1. Burning with urination - ICD9: 788.1, ICD10: R30.0 acute - UA positive for hardeep esterase and hematuria - Send urine for culture - Begin treatment with Macrobid 100 mg BID for 5 days - UA DIP, URINE (POC) - URINE CULTURE Jeane Barrios PA-C [facility] 04-26-2023 History of Present illness Narrative This note was created using NoteWriter. Subjective Adrianne Chaidez is a 58 year old female. HPI Patient presents with a chief complaint of dysuria, frequency, hematuria over the past 3 days. She just noticed the blood in her urine this morning. No diarrhea or vomiting. Denies back pain. She has had some lower abdominal pain. She has never had a UTI previously. Denies vaginal itching or discharge. Review of Systems Constitutional: Negative. HENT: Negative. Respiratory: Negative. Cardiovascular: Negative. Gastrointestinal: Negative. Genitourinary: Positive for dysuria, frequency, hematuria, pelvic pain and urgency. Negative for vaginal bleeding, vaginal discharge and vaginal pain. Musculoskeletal: Negative for back pain. All other systems reviewed and are negative. PAST MEDICAL HISTORY Diagnosis Date Dysplasia of cervix, unspecified Major depressive disorder, single episode, mild (HCC) Current Outpatient Medications Medication Sig Dispense Refill rosuvastatin (CRESTOR) 5 mg tablet Take 1 tablet by mouth once daily. 90 tablet 3 THERAPEUTIC MULTIVITAMIN TAB one tab daily 0 nitrofurantoin monohydrate and macrocrystal (MACROBID) 100 mg capsule Take 1 capsule by mouth two times a day with meals for 5 days. 10 capsule 0 No current facility-administered medications for this visit. PAST SURGICAL HISTORY Procedure Laterality Date ANKLE RIGHT 06/15/2012 surgery COLONOSCOPY 2012 COLPOSCOPY CERVIX UPPER/ADJACENT VAGINA 08/26/2004 mild to moderate dysplasia of cervix KERATOMILEUSIS Bilateral Dr. Rodriguez FAMILY HISTORY Problem Relation Age of Onset Hypertension Mother Diabetes Mother Cancer Father laryngeal Colon Cancer Brother 74 Hypertension Brother Stroke Brother Diabetes Brother Diabetes Sister Colon Cancer Sister 50 2014-16 yr remission Cancer Other liver-niece Breast Cancer Sister 63 lumpectomy/chemo 2013 Social History Tobacco Use Smoking status: Never Passive exposure: Never Smokeless tobacco: Never Vaping Use Vaping Use: Never used Substance Use Topics Alcohol use: Yes Comment: 1-2 per month Drug use: No Objective BP 129/84 Pulse 68 Temp 36.7 C (98.1 F) Resp 18 Wt 90.3 kg (199 lb) LMP 07/19/2019 (Approximate) SpO2 97% BMI 35.25 kg/m Physical Exam Vitals reviewed. Constitutional: Appearance: Normal appearance. HENT: Head: Normocephalic and atraumatic. Cardiovascular: Rate and Rhythm: Normal rate and regular rhythm. Heart sounds: Normal heart sounds. Pulmonary: Effort: Pulmonary effort is normal. Breath sounds: Normal breath sounds. Musculoskeletal: Cervical back: Neck supple. Skin: General: Skin is warm and dry. Neurological: Mental Status: She is alert. Assessment and Plan ASSESSMENT/PLAN: 1. Burning with urination - ICD9: 788.1, ICD10: R30.0 acute - UA positive for hardeep esterase and hematuria - Send urine for culture - Begin treatment with Macrobid 100 mg BID for 5 days - UA DIP, URINE (POC) - URINE CULTURE Jeane Barrios PA-C documented in this encounter [facility] 10-19-2022 Miscellaneous Notes October 20, 2022 PID: [id number] Adrianne Chaidez [address] [place], [place] [address] Dear Ms. Chaidez, We are pleased to inform you that the results of your recent breast imaging exam on 10/19/2022 are normal. Your mammogram demonstrates that you have dense breast tissue, which could hide abnormalities. Dense breast tissue, in and of itself, is a relatively common condition. Therefore, this information is not provided to cause undue concern; rather, it is to raise your awareness and promote discussion with your health care provider regarding the presence of dense breast tissue in addition to other risk factors. Early detection of cancer is very important. We also understand recommendations regarding breast cancer screening are controversial. Please discuss with your primary care provider which strategy is best for you and whether a mammogram is right for you. Your imaging studies and report will be kept on file at [facility] as part of your permanent medical record and are available for your continuing care. Thank you for allowing us to help in meeting your health care needs. Sincerely, Dr. Chand Interpreting Radiologist [facility] (Normal over 40) documented in this encounter [facility] 10-19-2022 Note HNO ID: [id number] Author: Shruthi Carney, [employer] Service: ? Author Type: Living Supervisor Type: Progress Notes Filed: 10/19/2022 7:39 AM Note Text: Radiology Service Progress Note PATIENT NAME: Adrianne Chaidez DATE OF SERVICE: October 19, 2022 TIME: 7:22 AM PATIENT IDENTITY VERIFICATION COMPLETED USING TWO (2) IDENTIFIERS: Name and Date of confirmed by patient verbally. FALL SCREENING: Has the patient had 2 falls in the last year or 1 fall with injury or currently using an Ambulatory Assistive Device (Walker, Cane, Wheelchair, Crutches, etc.)? No PATIENT GENDER DATA: Female. status: : No status: NO. PATIENT RELEVANT IMPLANT DATA REVIEWED: Not Applicable RADIOLOGY DEPARTMENT: Mammography PERIPHERAL IV DATA: Not applicable SIGNED BY: Shruthi Carney [employer] October 19, 2022 7:22 AM [facility] 10-19-2022 History of Present illness Narrative Radiology Service Progress Note PATIENT NAME: Adrianne Chaidez DATE OF SERVICE: October 19, 2022 TIME: 7:22 AM PATIENT IDENTITY VERIFICATION COMPLETED USING TWO (2) IDENTIFIERS: Name and Date of confirmed by patient verbally. FALL SCREENING: Has the patient had 2 falls in the last year or 1 fall with injury or currently using an Ambulatory Assistive Device (Walker, Cane, Wheelchair, Crutches, etc.)? No PATIENT GENDER DATA: Female. status: : No status: NO. PATIENT RELEVANT IMPLANT DATA REVIEWED: Not Applicable RADIOLOGY DEPARTMENT: Mammography PERIPHERAL IV DATA: Not applicable SIGNED BY: Shruthi Carney [employer] October 19, 2022 7:22 AM documented in this encounter [facility] 10-19-2022 Miscellaneous Notes Negative. 1 year screening mammogram advised documented in this encounter [facility] documented as of this encounter (statuses as of 05/25/2023) [facility]05-02-2023 NoteHNO ID: [id number] Author: Gricelda Barbosa APRN.CNS Service: ? Author Type: Nurse Specialist Type: Progress Notes Filed: 10/17/2022 7:59 AM Note Text: SUBJECTIVE: HEPATITIS B(1 of 3 - 3-dose series) Never done HEPATITIS C SCREENING Never done HIV SCREENING Never done DTAP,TDAP,TD(2 - Tdap) due on 02/08/2010 DIABETES SCREEN due on 05/12/2014 LIPID SCREEN due on 05/12/2016 MAMMOGRAM due on 05/28/2018 PAP TESTING due on 05/23/2021 HPV TESTING due on 05/23/2021 COVID-19 VACCINE(5 - Booster for Moderna series) due on 11/26/2021 OLIVER Chaidez is a 57 year old female. PMH significant for ACTIVE PROBLEM LIST Presenile Dementia With Depressive Features (Hcc) Generalized Anxiety Disorder Abnormal Finding On Pap Smear, Hpv Dna Positive Family History of Colon Cancer Family History of Breast Cancer in First Degree Relative Ascus With Positive High Risk Hpv Cervical Monoallelic Mutation of Prph2 Gene Presents today to establish care with Eula Arias MD Previous PCP: Carline Pratt DO, [id number] [facility] [id number] Last seen: 09/28/2022 Labwork: ~1yr ago ER/Hospitalization: visit at [facility] for sinus infection 10/12/2022. Outside records:care everywhere MECHANICAL DRAFTER: Epseranza Guthrie CNP Was seen at family medicine 2005. 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 Has seen director medical affairs Gill Ventura [facility] Today reports she is in her usual state of good health. Anxiety/depression: reports seasonal depression, not currently taking medication Counseling: none reported Hyperlipidemia, taking rosuvastatin 5 mg QD per PCP. Review of Systems Constitutional: Negative. Objective BP 120/82 Pulse 66 Resp 16 Ht 160 cm (5' 3 ) Wt 87.1 kg (192 lb) LMP 07/19/2019 (Approximate) SpO2 98% BMI 34.01 kg/m? Physical Exam Vitals and nursing note reviewed. HENT: Head: Normocephalic and atraumatic. Eyes: Conjunctiva/sclera: Conjunctivae normal. Neck: Thyroid: No thyromegaly. Vascular: Normal carotid pulses. No JVD. Cardiovascular: Rate and Rhythm: Normal rate and regular rhythm. Pulses: Carotid pulses are 2+ on the right side and 2+ on the left side. Radial pulses are 2+ on the right side and 2+ on the left side. Heart sounds: Normal heart sounds. Pulmonary: Effort: Pulmonary effort is normal. Breath sounds: Normal breath sounds. Abdominal: General: Bowel sounds are normal. Palpations: Abdomen is soft. Musculoskeletal: Right lower leg: No edema. Left lower leg: No edema. Skin: General: Skin is warm and dry. Neurological: General: No focal deficit present. Mental Status: She is oriented to person, place, and time. ALLERGIES No Known Allergies Medications rosuvastatin (CRESTOR) 5 mg tablet THERAPEUTIC MULTIVITAMIN TAB one tab daily ASCORBIC [id number] ORAL Take by mouth. (Patient not taking: Reported on 10/17/2022) furosemide (LASIX) 20 mg tablet Take by mouth. (Patient not taking: Reported on 10/17/2022) traZODone (DESYREL) 50 mg tablet Take 50 mg by mouth daily at bedtime. (Patient not taking: Reported on 10/17/2022) EFFEXOR XR 150 MG 24 HR CAP Take one(1) tablet daily. (Patient not taking: Reported on 10/17/2022) WELLBUTRIN XL 300 MG 24 HR TAB Take one(1) tablet daily in the morning. (Patient not taking: Reported on 10/17/2022) PAST MEDICAL HISTORY Diagnosis Date Dysplasia of cervix, unspecified Major depressive disorder, single episode, mild (HCC) PAST SURGICAL HISTORY Procedure Laterality Date ANKLE RIGHT 06/15/2012 surgery COLONOSCOPY 2012 COLPOSCOPY CERVIX UPPER/ADJACENT VAGINA 08/26/2004 mild to moderate dysplasia of cervix KERATOMILEUSIS Bilateral Dr. Rodriguez Social History Tobacco Use Smoking status: Never Smokeless tobacco: Never Vaping Use Vaping Use: Never used Substance Use Topics Alcohol use: Yes Comment: 4 per month Drug use: No ASSESSMENT/PLAN: 1. Routine medical exam - ICD9: V70.0, ICD10: Z00.00 (primary diagnosis) - Endorse plant-based diet such as Mediterranean diet and regular exercise such as walking - Calcium intake with supplements or by diet 4766-7939 mg/day - LIPID PANEL BASIC - COMP METABOLIC PANEL - CBC + DIFF 2. Encounter for immunization - ICD9: V03.89, ICD10: Z23 - TDAP VACCINE, AGE 7+ YR (ADACEL, BOOSTRIX) - [employer] COVID-19 BIVALENT VACCINE, AGE 12+ YR - HEP B VACCINE, 3-DOSE, AGE 20+ YR (ENGERIX-B, RECOMBIVAX HB) - HEP B VACCINE, 3-DOSE, AGE 20+ YR (ENGERIX-B, RECOMBIVAX HB) - HEP B VACCINE, 3-DOSE, AGE 20+ YR (ENGERIX-B, RECOMBIVAX HB) 3. Special screening examination for viral disease - ICD9: V73.99, ICD10: Z11.59 - HEP C AB IA W/CONF SCRN 4. Screening for HIV (human immunodefi (more content not included)...[facility]05-02-2023 History of Present illness Narrative* Griceldaluisana Barbosa, MANAGER [employer] - 10/17/2022 7:07 AM EDT SUBJECTIVE: HEPATITIS B(1 of 3 - 3-dose series) Never done HEPATITIS C SCREENING Never done HIV SCREENING Never done DTAP,TDAP,TD(2 - Tdap) due on 02/08/2010 DIABETES SCREEN due on 05/12/2014 LIPID SCREEN due on 05/12/2016 MAMMOGRAM due on 05/28/2018 PAP TESTING due on 05/23/2021 HPV TESTING due on 05/23/2021 COVID-19 VACCINE(5 - Booster for Moderna series) due on 11/26/2021 HPI Adrianne Chaidez is a 57 year old female. 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 Outside records:care everywhere MECHANICAL DRAFTER: Esperanza Cleveland MARSHALL Was seen at family medicine 2005. 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 Has seen [facility] director medical affairs Gill Ventura [facility] Today reports she is in her usual state of good health. Anxiety/depression: reports seasonal depression, not currently taking medication Counseling: none reported Hyperlipidemia, taking rosuvastatin 5 mg QD per PCP. Review of Systems Constitutional: Negative. Objective BP 120/82 Pulse 66 Resp 16 Ht 160 cm (5' 3 ) Wt 87.1 kg (192 lb) LMP 07/19/2019 (Approximate) SpO2 98% BMI 34.01 kg/m Physical Exam Vitals and nursing note reviewed. HENT: Head: Normocephalic and atraumatic. Eyes: Conjunctiva/sclera: Conjunctivae normal. Neck: Thyroid: No thyromegaly. Vascular: Normal carotid pulses. No JVD. Cardiovascular: Rate and Rhythm: Normal rate and regular rhythm. Pulses: Carotid pulses are 2+ on the right side and 2+ on the left side. Radial pulses are 2+ on the right side and 2+ on the left side. Heart sounds: Normal heart sounds. Pulmonary: Effort: Pulmonary effort is normal. Breath sounds: Normal breath sounds. Abdominal: General: Bowel sounds are normal. Palpations: Abdomen is soft. Musculoskeletal: Right lower leg: No edema. Left lower leg: No edema. Skin: General: Skin is warm and dry. Neurological: General: No focal deficit present. Mental Status: She is oriented to person, place, and time. ALLERGIES No Known Allergies Medications rosuvastatin (CRESTOR) 5 mg tablet THERAPEUTIC MULTIVITAMIN TAB one tab daily ASCORBIC [id number] ORAL Take by mouth. (Patient not taking: Reported on 10/17/2022) furosemide (LASIX) 20 mg tablet Take by mouth. (Patient not taking: Reported on 10/17/2022) traZODone (DESYREL) 50 mg tablet Take 50 mg by mouth daily at bedtime. (Patient not taking: Reported on 10/17/2022) EFFEXOR XR 150 MG 24 HR CAP Take one(1) tablet daily. (Patient not taking: Reported on 10/17/2022) WELLBUTRIN XL 300 MG 24 HR TAB Take one(1) tablet daily in the morning. (Patient not taking: Reported on 10/17/2022) PAST MEDICAL HISTORY Diagnosis Date Dysplasia of cervix, unspecified Major depressive disorder, single episode, mild (HCC) PAST SURGICAL HISTORY Procedure Laterality Date ANKLE RIGHT 06/15/2012 surgery COLONOSCOPY 2012 COLPOSCOPY CERVIX UPPER/ADJACENT VAGINA 08/26/2004 mild to moderate dysplasia of cervix KERATOMILEUSIS Bilateral Dr. Rodriguez Social History Tobacco Use Smoking status: Never Smokeless tobacco: Never Vaping Use Vaping Use: Never used Substance Use Topics Alcohol use: Yes Comment: 4 per month Drug use: No ASSESSMENT/PLAN: 1. Routine medical exam - ICD9: V70.0, ICD10: Z00.00 (primary diagnosis) - Endorse plant-based diet such as Mediterranean diet and regular exercise such as walking - Calcium intake with supplements or by diet 2737-3897 mg/day - LIPID PANEL BASIC - COMP METABOLIC PANEL - CBC + DIFF 2. Encounter for immunization - ICD9: V03.89, ICD10: Z23 - TDAP VACCINE, AGE 7+ YR (ADACEL, BOOSTRIX) - [employer] COVID-19 BIVALENT VACCINE, AGE 12+ YR - HEP B VACCINE, 3-DOSE, AGE 20+ YR (ENGERIX-B, RECOMBIVAX HB) - HEP B VACCINE, 3-DOSE, AGE 20+ YR (ENGERIX-B, RECOMBIVAX HB) - HEP B VACCINE, 3-DOSE, AGE 20+ YR (ENGERIX-B, RECOMBIVAX HB) 3. Special screening examination for viral disease - ICD9: V73.99, ICD10: Z11.59 - HEP C AB IA W/CONF SCRN 4. Screening for HIV (human immunodeficiency virus) - ICD9: V73.89, ICD10: Z11.4 - HIV 1 2 COMBO(AG/AB),WITH REFLEX TO DIFFERENTIATION 5. Screening for diabetes mellitus (DM) - ICD9: V77.1, ICD10: Z13.1 6. Screening for lipid disorders - ICD9: V77.91, ICD10: Z13.220 - LIPID PANEL BASIC 7. Encounter for screening mammogram for breast cancer - ICD9: V76.12, ICD10: Z12.31 - Encourage monthly BSE - ZE SCREENING 8. Screening for cervical cancer - ICD9: V76.2, ICD10: Z12.4 - CONSULT TO MECHANICAL DRAFTER - Esperanza Oakman labs today 6-12 mo follow up Elua Arias MD - establish Gricelda Barbosa APRN.CNS Medical Decision Making: Problems: Moderate: 2+ stable chronic illnesses Data: Unique test(s) ordered: 3+ Risk: Moderate: Drug management Medical Decision Making Level: 4 - Moderate documented in this encounterOhio[facility]03-02-2023 NoteHNO ID: [id number] Author: Jose iGll MD, PhD Service: ? Author Type: Physician Type: Progress Notes Filed: 08/17/2022 8:45 AM Note Text: 56 year old female new patient referred by [facility] (Dr. 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 Sees ripple Right eye in vision PMH: Non-contributory SHx: Family history of blindness: mom (diabetes), brother/sister (AMD) 1. 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 - Letters fade in and out when reading - starting early December 2021 - Had upper respiratory tract infection shortly beforehand - No flashes or other symptoms - Never smoker - (+) FHx: brother and sister - both with early Age related macular degeneration (not sure about brother's diagnosis), mother blind at young age but also had diabetes, oldest sister is also seen today Macie Acevedo - denies hearing loss - no diabetes, no renal or cardiac problems -no bowel surgery - Exam: Subfoveal subRPE changes with scattered hypopigmented changes; no hemes - OCT: bilateral, focal subfoveal RPE changes; REP changes at sites of scattered hypopigmented lesions; no fluid - FAF: hyperpigmented lesions Both Eyes Update electroretinogram (ERG) 07/13/22: c/w maculopathy (mild) with mild reduction in cone pathways. 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 Posterior vitreous detachment, Both eyes - No breaks - RD precautions reviewed 3. Cataract, Both eyes - Not visually significant Plan: Sister Macie Acevedo had recent genetic testing also No subjective changes, stable exam Return annually Get FAF 2023 I have confirmed and edited as necessary the relevant ophthalmic history, ROS, and the neuro exam findings as obtained by others. I have seen and examined this patient. I have discussed the case and the management of this patient's care with the Resident/Fellow, if applicable. I also have reviewed and agree with the assessment and plan as stated above and agree with all of its relevant components. Jose Gill [facility]03-02-2023 Instructions* Patient Instructions* Jose Gill MD, PhD - 08/17/2022 8:44 AM EST Gill- genetic counselor [phone] option 2 documented in this encounterOhiohealth [facility]heastern [facility] Center03-02-2023 History of Present illness Narrative* Jose Gill MD, PhD - 08/17/2022 8:22 AM EST 56 year old female new patient referred by [facility] (Dr. 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 Sees ripple Right eye in vision PMH: Non-contributory SHx: Family history of blindness: mom (diabetes), brother/sister (AMD) 1. 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 - Letters fade in and out when reading - starting early December 2021 - Had upper respiratory tract infection shortly beforehand - No flashes or other symptoms - Never smoker - (+) FHx: brother and sister - both with early Age related macular degeneration (not sure about brother's diagnosis), mother blind at young age but also had diabetes, oldest sister is also seen today Macie Acevedo - denies hearing loss - no diabetes, no renal or cardiac problems -no bowel surgery - Exam: Subfoveal subRPE changes with scattered hypopigmented changes; no hemes - OCT: bilateral, focal subfoveal RPE changes; REP changes at sites of scattered hypopigmented lesions; no fluid - FAF: hyperpigmented lesions Both Eyes Update electroretinogram (ERG) 07/13/22: c/w maculopathy (mild) with mild reduction in cone pathways. 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 Posterior vitreous detachment, Both eyes - No breaks - RD precautions reviewed 3. Cataract, Both eyes - Not visually significant Plan: Sister Macie Acevedo had recent genetic testing also No subjective changes, stable exam Return annually Get FAF 2023 I have confirmed and edited as necessary the relevant ophthalmic history, ROS, and the neuro exam findings as obtained by others. I have seen and examined this patient. I have discussed the case and the management of this patient's care with the Resident/Fellow, if applicable. I also have reviewed and agree with the assessment and plan as stated above and agree withall of its relevant components. Jose Gill MD documented in this encounterOhiohealth Southeastern Medical Center12-19-2022 NoteHNO ID: [id number] Author: Gill Ventura [facility] Service: ? Author Type: Genetic Counselor Type: Progress Notes Filed: 06/05/2022 11:26 AM Note Text: Patient Name and confirmed at initiation of visit YES Dr. Gill requested a consultation for genetic counseling for Adrianne Chaidez, a 57 year old male, for discussion of her personal history of possible retinal dystrophy. Prior to the visit, the genetic counselor reviewed records in the patient's EMR including, but not limited to, available clinic notes, physician consultations, laboratory tests, imaging reports, ophthalmic studies, and other investigations and evaluations. The genetic counselor also reviewed the case with Dr. Salmon, as needed, prior to seeing the patient. The patient was successfully seen via Virtual Visit using [employer]. Patient was not accompanied to today's appointment. Patient was at work in [place], [place] at the time of the appointment. HISTORY OF PRESENT CONDITION: Patient was evaluated previously by Dr. Gill and additional history is available in his note. 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 No difficulty with color vision Prefers dim room Blue lights when driving at nights is bothersome to her Has a little blur/ripple when reading text - the brightness and dimness goes in and out. Per patient, the brightness of the room and size of font does help. , , AND HISTORY: Non-contributory ? PERTINENT PAST MEDICAL AND SURGICAL HISTORY INCLUDES: PAST MEDICAL HISTORY Diagnosis Date Dysplasia of cervix, unspecified Major depressive disorder, single episode, mild (HCC) + heart murmur - balance problems - neurological problems - kidney problems - heart defects - hearing problems - polydactyly ? RELEVANT EVALUATIONS TO DATE: Most Recent Eye Exam - 05/18/[address] Gill Visual Acuity Right Left Dist cc 20/25 20/20 Tonometry ([facility], 7:35 AM) Right Left Pressure 13 13 Pupils Pupils Dark Light Shape APD Right PERRL 5 3 Round None Left PERRL 5 3 Round None Visual Tapia (Counting fingers) Left Right Full Full Extraocular Movement Right Left Full Full Amsler Right Left Central distortion Normal External Exam Right Left External Normal including orbits and preauricular lymph nodes Normal including orbits and preauricular lymph nodes Slit Lamp Exam Right Left Lids/Lashes Normal lids/lashes/lacrimal glands/lacrimal drainage Normal lids/lashes/lacrimal glands/lacrimal drainage Conjunctiva/Sclera White and quiet White and quiet Cornea Normal epithelium/stroma/endothelium/tear film Normal epithelium/stroma/endothelium/tear film Anterior Chamber Deep and quiet Deep and quiet Iris Dilated Dilated Lens 1+ NS 1+ NS Anterior Vitreous PVD PVD Fundus Exam Right Left Disc Normal Normal Macula Foveal subretinal hyperpigmentation, rare scattered hypopigmented lesions; no hemes Juxtafoveal hypopigmented changes; no hemes Vessels Normal Normal Periphery Normal Normal OCT Macula OU 05/18/2022 Interpretation Right Eye = Normal foveal contour. Findings include IS/OS junction, RPE Irregularity. Left Eye = Normal foveal contour. Findings include IS/OS junction, RPE Irregularity. Fundus Autofluorescence OU 02/23/2022 Interpretation Right Eye = Hyperfluorescence. Left Eye = Hyperfluorescence. 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 - Parental consanguinity: No A 3 generation pedigree was collected. Pertinent findings are noted below. Unless otherwise noted all individuals are alive and have no significant medical problems. Children: 0. Full siblings: 4 brothers - oldest brother at 73 and he macular degeneration dx'd late 50's; 74 yrs with cataracts; 65 yrs with good vision; twin brother who has always worn glasses but unknown if diagnosed with a macular problem . 3 sisters., 1, 67 yrs, also has mac degeneration diagnosed 10 yrs ago; 75 yrs and diagnosed with macular degeneration; 71 yrs and ? Slight macular degeneration Half siblings: Nieces and nephews: no known retinal or macular diagnoses Parental losses: Mother: at 59 years old from congenital heart disease; she was blind but had diabetes - had laser for hemorrhaging behind her eyes . Maternal aunts and their children: 3 - 1 went blind from diabetes Maternal uncles and their children: 2 - no known retinal dx Maternal grandmother: - no known retinal dx. Maternal grandfather: - no known retinal dx. Other maternal relativ (more content not included)...[facility] 06-05-2022 History of Present illness Narrative* Gill Stafford Lorenzo, [facility] - 06/05/2022 9:31 AM EST Patient Name and confirmed at initiation of visit YES Dr. Gill requested a consultation for genetic counseling for Adrianne Chaidez, a 57 year old male, for discussion of her personal history of possible retinal dystrophy. Prior to the visit, the genetic counselor reviewed records in the patient's EMR including, but not limited to, available clinic notes, physician consultations, laboratory tests, imaging reports, ophthalmic studies, and other investigations and evaluations. The genetic counselor also reviewed the case with Dr. Salmon, as needed,prior to seeing the patient. The patient was successfully seen via Virtual Visit using [employer]. Patient was not accompanied to today's appointment. Patient was at work in [place], [place] at the time of the appointment. HISTORY OF PRESENT CONDITION: Patient was evaluated previously by Dr. Gill and additional history is available in his note. 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 No difficulty with color vision Prefers dim room Blue lights when driving at nights is bothersome to her Has a little blur/ripple when reading text - the brightness and dimness goes in and out. Per patient, the brightness of the room and size of font does help. , , AND HISTORY: Non-contributory ? PERTINENT PAST MEDICAL AND SURGICAL HISTORY INCLUDES: PAST MEDICAL HISTORY Diagnosis Date Dysplasia of cervix, unspecified Major depressive disorder, single episode, mild (HCC) + heart murmur - balance problems - neurological problems - kidney problems - heart defects - hearing problems - polydactyly ? RELEVANT EVALUATIONS TO DATE: Most Recent Eye Exam - 05/18/[address] Gill Visual Acuity Right Left Dist cc 20/25 20/20 Tonometry ([facility], 7:35 AM) Right Left Pressure 13 13 Pupils Pupils Dark Light Shape APD Right PERRL 5 3 Round None Left PERRL 5 3 Round None Visual Tapia (Counting fingers) Left Right Full Full Extraocular Movement Right Left Full Full Amsler Right Left Central distortion Normal External Exam Right Left External Normal including orbits and preauricular lymph nodes Normal including orbits and preauricular lymph nodes Slit Lamp Exam Right Left Lids/Lashes Normal lids/lashes/lacrimal glands/lacrimal drainage Normal lids/lashes/lacrimal glands/lacrimal drainage Conjunctiva/Sclera White and quiet White and quiet Cornea Normal epithelium/stroma/endothelium/tear film Normal epithelium/stroma/endothelium/tear film Anterior Chamber Deep and quiet Deep and quiet Iris Dilated Dilated Lens 1+ NS 1+ NS Anterior Vitreous PVD PVD Fundus Exam Right Left Disc Normal Normal Macula Foveal subretinal hyperpigmentation, rare scattered hypopigmented lesions; no hemes Juxtafoveal hypopigmented changes; no hemes Vessels Normal Normal Periphery Normal Normal OCT Macula OU 05/18/2022 Interpretation Right Eye = Normal foveal contour. Findings include IS/OS junction, RPE Irregularity. Left Eye = Normal foveal contour. Findings include IS/OS junction, RPE Irregularity. Fundus Autofluorescence OU 02/23/2022 Interpretation Right Eye = Hyperfluorescence. Left Eye = Hyperfluorescence. 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 - Parental consanguinity: No A 3 generation pedigree was collected. Pertinent findings are noted below. Unless otherwise noted all individuals are alive and have no significant medical problems. Children: 0. Full siblings: 4 brothers - oldest brother at 73 and he macular degeneration dx'd late 50's; 74 yrs with cataracts; 66 yrs with good vision; twin brother who has always worn glasses but unknown if diagnosed with a macular problem . 3 sisters., 1, 67 yrs, also has mac degeneration diagnosed 10 yrs ago; 75 yrs and diagnosed with macular degeneration; 71 yrs and ? Slight macular degeneration Half siblings: Nieces and nephews: no known retinal or macular diagnoses Parental losses: Mother: at 59 years old from congenital heart disease; she was blind but had diabetes - had laser for hemorrhaging behind her eyes . Maternal aunts and their children: 3 - 1 went blind from diabetes Maternal uncles and their children: 2 - no known retinal dx Maternal grandmother: - no known retinal dx. Maternal grandfather: - no known retinal dx. Other maternal relatives: NA. Father: at 69 years old, throat cancer. No known vision problems Paternal aunts and their children: 4 or 5 - no known vision problems. Paternal uncles and their children: 1 - no known vision problems. Paternal grandmother: at 94 and was losing eyesight but ? Age-related Paternal grandfather: - no known retinal dx. Other paternal relatives: NA. The remainder of Adrianne's reported family history is negative for known or suspected genetic disease, defects, malformation syndromes, chromosomal disorders, metabolic disorders, developmental delay, mental retardation, infertility, recurrent loss, stillbirth, unexplained infant , and consanguinity. GENETIC COUNSELING RISK ASSESSMENT AND DISCUSSION: We reviewed the natural history and genetic etiology of retinal dystrophies. Retinal dystrophies are a phenotypically and genetically heterogeneous group of disorders. We discussed the difference between syndromic and non-syndromic causes of retinal dystrophies. Syndromic conditions will have ocular findings as well as other systemic findings that can be attributed to the same genetic etioloogy. Findings that can be associated with syndromic retinal dystrophies include, kidney or liver abnormalities, heart defects, hearing loss, and polydactyly. Retinal dystrophies can also be nonsyndromic, where the patient has a retinal dystrophy due to a gene that only causes ocular involvement. It is necessary to perform genetic testing in order to confirm or rule out a specific type of retina dystrophy. Establishing the correct diagnosis will be crucial in determining accurate visual prognosis and future management. For example, in [place] fundus dystrophy, patients are at an increased risk for night blindness and high dose vitamin A supplementation has been shown to prevent or reverse this (Glen et al, 1995). On the contrary, Stargardt disease has actually been associated with vitamin A toxicity and so high-dose supplementation is contraindicated in these patients (Christophe & Guillermo, 2018). Additionally , visual prognosis can differ between the various macular dystrophies both in terms of final visual acuity and visual field defects. Some can have quicker rates of progression, greater likelihood of peripheral retinal involvement, or a higher chance of developing more severe or earlier onset of choroidal neovascularization (CNV) which causes a sudden severe loss of visual acuity. Having a genetic diagnosis will allow the medical team to make decisions on how often andhow aggressively to screen for CNV and other possible complications, like glaucoma. Risks, benefits, and limitations of genetic testing were discussed, including the possibility of a positive, negative, or inconclusive result. A positive result means a pathogenic mutation(s) was identified in one of the genes analyzed. A mutation is a change in the gene that affects function and causes disease. A negative result means that no mutations were identified in any of the genes tested;however, one or more benign/harmless DNA changes may have been identified. Such benign polymorphisms do not cause disease. An inconclusive result means one or more variants of unknown clinical significance was identified in one or more genes. A variant is an abnormality in a gene that may or may not impair the gene's function. Often the clinical significance of a variant is unknown due to a lack of data, and a variant may eventually be determined to be either a pathogenic mutation or a benign polymorphism. Adrianne Chaidez was offered and elected to proceed with genetic testing for her retinal condition. We reviewed that the MyRetina Tracker panel (an equivalent/identical test to the Retinal Dystrophy Panel) is a sponsored genetic test, which means the cost is covered by the genetic testing company and/or a non-profit organization and, therefore, will not go through the patient's insurance. The goal of this sponsored test is to make genetic testing accessible for patients with inherited retinal degenerative diseases/retinal dystrophies. Clinicians must confirm that patients satisfy certain criteria to use the program. Third parties and commercial organizations may receive de-identified patient data from this program, but at no time would they receive patient identifiable information. The consent form provided by [employer] was reviewed in detail with the patient. In addition to reviewing the MyRetina Tracker panel, we also discussed the option of obtaining the Retinal Dystrophy Panel via insurance bill, financial assistance, and/or self-pay options. The patient agreed to proceed with the MyRetina Tracker. FOLLOW-UP PLAN: Blood drawn today and sent to [facility] for their MRT Results will be communicated by [employer] when they become available (~8 weeks) EDUCATIONAL INFORMATION SUPPLIED TO PATIENT: The patient was seen for a total of 34 minutes, greater than 50% of which was spent [id number] counseling. This plan is being carried out under the oversight of . This note will also besent to the referring provider. Gill Saucedo), MS, [facility] [place] Licensed, Certified Genetic Counselor EPIC CC: documented [facility] History of Present illness Narrative* Jose Gill MD, PhD - 05/18/2022 7:30 AM EST 56 year old female new patient referred by [facility] (Dr. 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 Sees ripple Right eye in vision PMH: Non-contributory SHx: Family history of blindness: mom (diabetes), brother/sister (AMD) 1. Pigmented retinal dystrophy, Both eyes - Letters fade in and out when reading - starting early December 2021 - Had upper respiratory tract infection shortly beforehand - No flashes or other symptoms - Never smoker - (+) FHx: brother and sister - both with early Age related macular degeneration (not sure about brother's diagnosis), mother blind at young age but also had diabetes, oldest sister is also seen today Macie Acevedo - denies hearing loss - no diabetes, no renal or cardiac problems - Exam: Subfoveal subRPE changes with scattered hypopigmented changes; no hemes - OCT: bilateral, focal subfoveal RPE changes; REP changes at sites of scattered hypopigmented lesions; no fluid - FAF: hyperpigmented lesions Both Eyes 2. Posterior vitreous detachment, Both eyes - No breaks - RD precautions reviewed 3. Cataract, Both eyes - Not visually significant Plan: No family members have had genetic testing She is interested in genetic testing- will message Also order electroretinogram (ERG) for diff: pattern dys vs stargardt vs mitochondrial Make appt for 3-4 mo I have confirmed and edited as necessary the relevant ophthalmic history, ROS, and the neuro exam findings as obtained by others. I have seen and examined this patient. I have discussed the case and the management of this patient's care with the Resident/Fellow, if applicable. I also have reviewed and agree with the assessment and plan as stated above and agree withall of its relevant components. Jose Gill MD documented in this encounterOhio[facility]09-[facility] History of Present illness Narrative* Javier Hernandez MD - 02/23/2022 9:43 AM EDT 56 year old female new patient referred by [facility] (Dr. 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 Lives in [place], [place]; ~[address] Family history of blindness: mom (diabetes), brother/sister (AMD) 1. Pigmented retinal dystrophy, Both eyes - Letters fade in and out when reading - starting early December 2021 - Had upper respiratory tract infection shortly beforehand - No flashes or other symptoms - Never smoker - (+) FHx: brother and sister - AMD - Exam: Subfoveal subRPE changes with scattered hypopigmented changes; no hemes - OCT: bilateral, focal subfoveal RPE changes; REP changes at sites of scattered hypopigmented lesions; no fluid - FAF: hyperpigmented lesions Both Eyes - Send to Dr. Gill; likely genetic testing 2. Posterior vitreous detachment, Both eyes - No breaks - RD precautions reviewed 3. Cataract, Both eyes - Not visually significant Castillo Jacobsen, fellow I have confirmed and edited as necessary the relevant ophthalmic history, ROS, and the clinical/neuro exam findings as obtained by others. I have seen and examined this patient. I have discussed the case and the management of this patient's care with the Resident/Fellow, if applicable. 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-[place] syndrome of both eyes (HCC) Disorders of mitochondrial metabolism documented in this encounter [facility]* Diagnosis Pigmentary retinal dystrophy documented [facility] encounter [facility]* Diagnosis Pigmentary retinal dystrophy Stargardt's disease Other dystrophies primarily involving the sensory retina Fernando-[place] syndrome of both eyes (HCC) Disorders of mitochondrial metabolism documented [facility]* Diagnosis Pigmentary retinal dystrophy Stargardt's disease Other dystrophies primarily involving the sensory retina Fernando-[place] syndrome of both eyes (HCC) Disorders of mitochondrial metabolism [facility] Diagnosis Routine medical exam- Primary Routine general medical examination at a health care facility Encounter for immunization Need for other specified prophylactic vaccination against single bacterial disease Special screening examination for viral disease Special screening examination for unspecified viral disease Screening for HIV (human immunodeficiency virus) Special screening examination for other specified viral diseases Screening for diabetes mellitus (DM) Screening for diabetes mellitus Screening for lipid disorders Encounter for screening mammogram for breast cancer Screening for cervical cancer Screening for malignant neoplasm of the cervix documented [facility] encounter [facility]* Diagnosis Encounter for screening mammogram for breast cancer [facility]* Diagnosis Burning with urination- Primary Dysuria [facility]* Diagnosis Hypercholesteremia- Primary Pure hypercholesterolemia Blurry vision, bilateral Other specified visual disturbances Bilateral lower extremity edema Edema BMI 34.0-34.9,adult Body Mass Index 34.0-34.9, adult Encounter for long-term current use of medication documented in [facility] encounter [facility]* Name Dates Details How to Access Health Informa tion Online using Patient Portal and [employer] Apps Indication:Non-smoker Start:24-Nov-2020 Instruction Type:Patient Education Patient Instructions Indication:Non-smoker Start:24-Nov-2020 Instruction Type:Provider Instructions for Treatment How to access health informa tion online Indication:Non-smoker Start:25-Mar-2020 Instruction Type:Patient Education How to access health informa tion online - Detail Indication:Non-smoker Start:25-Mar-2020 Instruction Type:Patient Education Patient Instructions Indication:Non-smoker Start:25-Mar-2020 Instruction Type:Provider Instructions for Treatment How to access health informa tion online Indication:BMI 34.0-34.9,adult Start:11-Dec-2019 Instruction Type:Patient Education How to access health informa tion online - Detail Indication:BMI 34.0-34.9,adult Start:11-Dec-2019 Instruction Type:Patient Education Patient Instructions Indication:BMI 34.0-34.9,adult Start:11-Dec-2019 Instruction Type:Provider Instructions for Treatment How to access health informa tion online Indication:Pain of left calf Start:29-Nov-2018 Instruction Type:Patient Education How to access health informa tion online - Detail Indication:Pain of left calf Start:29-Nov-2018 Instruction Type:Patient Education Patient Instructions Indication:Pain of left calf Start:29-Nov-2018 Instruction Type:Provider Instructions for Treatment How to access health informa tion online Indication:Non-smoker Start:08-Jul-2018 Instruction Type:Patient Education How to access health informa tion online - Detail Indication:Non-smoker Start:08-Jul-2018 Instruction Type:Patient Education Patient Instructions Indication:Non-smoker Start:08-Jul-2018 Instruction Type:Provider Instructions for Treatment How to access health informa tion online Indication:Non-smoker Start:01-Mar-2017 Instruction Type:Patient Education Patient Instructions Indication:Non-smoker Start:01-Mar-2017 Instruction Type:Provider Instructions for Treatment Patient Instructions Indication:Dysthymic Start:17-Jul-2012 Instruction Type:Provider Instructions for Treatment [facility] Work Phone: Instructions* Name Dates Details How to Access Health Informa tion Online using Patient Portal and [employer] Apps Indication:Non-smoker Start:24-Nov-2020 Instruction Type:Patient Education Patient Instructions Indication:Non-smoker Start:24-Nov-2020 Instruction Type:Provider Instructions for Treatment How to access health informa tion online Indication:Non-smoker Start:25-Mar-2020 Instruction Type:Patient Education How to access health informa tion online - Detail Indication:Non-smoker Start:25-Mar-2020 Instruction Type:Patient Education Patient Instructions Indication:Non-smoker Start:25-Mar-2020 Instruction Type:Provider Instructions for Treatment How to access health informa tion online Indication:BMI 34.0-34.9,adult Start:11-Dec-2019 Instruction Type:Patient Education How to access health informa tion online - Detail Indication:BMI 34.0-34.9,adult Start:11-Dec-2019 Instruction Type:Patient Education Patient Instructions Indication:BMI 34.0-34.9,adult Start:11-Dec-2019 Instruction Type:Provider Instructions for Treatment How to access health informa tion online Indication:Pain of left calf Start:29-Nov-2018 Instruction Type:Patient Education How to access health informa tion online - Detail Indication:Pain of left calf Start:29-Nov-2018 Instruction Type:Patient Education Patient Instructions Indication:Pain of left calf Start:29-Nov-2018 Instruction Type:Provider Instructions for Treatment How to access health informa tion online Indication:Non-smoker Start:08-Jul-2018 Instruction Type:Patient Education How to access health informa tion online - Detail Indication:Non-smoker Start:08-Jul-2018 Instruction Type:Patient Education Patient Instructions Indication:Non-smoker Start:08-Jul-2018 Instruction Type:Provider Instructions for Treatment How to access health informa tion online Indication:Non-smoker Start:01-Mar-2017 Instruction Type:Patient Education Patient Instructions Indication:Non-smoker Start:01-Mar-2017 Instruction Type:Provider Instructions for Treatment Patient Instructions Indication:Dysthymic Start:17-Jul-2012 Instruction Type:Provider Instructions for Treatment [facility] Work Phone: Instructions* Name Dates Details How to Access Health Informa tion Online using Patient Portal and [employer] Apps Indication:Non-smoker Start:24-Nov-2020 Instruction Type:Patient Education Patient Instructions Indication:Non-smoker Start:24-Nov-2020 Instruction Type:Provider Instructions for Treatment How to access health informa tion online Indication:Non-smoker Start:25-Mar-2020 Instruction Type:Patient Education How to access health informa tion online - Detail Indication:Non-smoker Start:25-Mar-2020 Instruction Type:Patient Education Patient Instructions Indication:Non-smoker Start:25-Mar-2020 Instruction Type:Provider Instructions for Treatment How to access health informa tion online Indication:BMI 34.0-34.9,adult Start:11-Dec-2019 Instruction Type:Patient Education How to access health informa tion online - Detail Indication:BMI 34.0-34.9,adult Start:11-Dec-2019 Instruction Type:Patient Education Patient Instructions Indication:BMI 34.0-34.9,adult Start:11-Dec-2019 Instruction Type:Provider Instructions for Treatment How to access health informa tion online Indication:Pain of left calf Start:29-Nov-2018 Instruction Type:Patient Education How to access health informa tion online - Detail Indication:Pain of left calf Start:29-Nov-2018 Instruction Type:Patient Education Patient Instructions Indication:Pain of left calf Start:29-Nov-2018 Instruction Type:Provider Instructions for Treatment How to access health informa tion online Indication:Non-smoker Start:08-Jul-2018 Instruction Type:Patient Education How to access health informa tion online - Detail Indication:Non-smoker Start:08-Jul-2018 Instruction Type:Patient Education Patient Instructions Indication:Non-smoker Start:08-Jul-2018 Instruction Type:Provider Instructions for Treatment How to access health informa tion online Indication:Non-smoker Start:01-Mar-2017 Instruction Type:Patient Education Patient Instructions Indication:Non-smoker Start:01-Mar-2017 Instruction Type:Provider Instructions for Treatment Patient Instructions Indication:Dysthymic Start:17-Jul-2012 Instruction Type:Provider Instructions for Treatment [facility] Work Phone: Instructions* Name Dates Details How to Access Health Informa tion Online using Patient Portal and [employer] Apps Indication:Non-smoker Start:24-Nov-2020 Instruction Type:Patient Education Patient Instructions Indication:Non-smoker Start:24-Nov-2020 Instruction Type:Provider Instructions for Treatment How to access health informa tion online Indication:Non-smoker Start:25-Mar-2020 Instruction Type:Patient Education How to access health informa tion online - Detail Indication:Non-smoker Start:25-Mar-2020 Instruction Type:Patient Education Patient Instructions Indication:Non-smoker Start:25-Mar-2020 Instruction Type:Provider Instructions for Treatment How to access health informa tion online Indication:BMI 34.0-34.9,adult Start:11-Dec-2019 Instruction Type:Patient Education How to access health informa tion online - Detail Indication:BMI 34.0-34.9,adult Start:11-Dec-2019 Instruction Type:Patient Education Patient Instructions Indication:BMI 34.0-34.9,adult Start:11-Dec-2019 Instruction Type:Provider Instructions for Treatment How to access health informa tion online Indication:Pain of left calf Start:29-Nov-2018 Instruction Type:Patient Education How to access health informa tion online - Detail Indication:Pain of left calf Start:29-Nov-2018 Instruction Type:Patient Education Patient Instructions Indication:Pain of left calf Start:29-Nov-2018 Instruction Type:Provider Instructions for Treatment How to access health informa tion online Indication:Non-smoker Start:08-Jul-2018 Instruction Type:Patient Education How to access health informa tion online - Detail Indication:Non-smoker Start:08-Jul-2018 Instruction Type:Patient Education Patient Instructions Indication:Non-smoker Start:08-Jul-2018 Instruction Type:Provider Instructions for Treatment How to access health informa tion online Indication:Non-smoker Start:01-Mar-2017 Instruction Type:Patient Education Patient Instructions Indication:Non-smoker Start:01-Mar-2017 Instruction Type:Provider Instructions for Treatment Patient Instructions Indication:Dysthymic Start:17-Jul-2012 Instruction Type:Provider Instructions for Treatment [facility]; [facility] Work Phone: Instructions* Name Dates Details Patient Instructions Indication:Non-smoker Start:22-Apr-2021 Instruction Type:Provider Instructions for Treatment How to Access Health Informa tion Online using Patient Portal and [employer] Apps Indication:Non-smoker Start:22-Apr-2021 Instruction Type:Patient Education Patient Instructions Indication:Non-smoker Start:20-Apr-2021 Instruction Type:Provider Instructions for Treatment How to Access Health Informa tion Online using Patient Portal and [employer] Indication:Non-smoker Start:20-Apr-2021 Instruction Type:Patient Education How to Access Health Informa tion Online using Patient Portal and [employer] Indication:Non-smoker Start:24-Nov-2020 Instruction Type:Patient Education Patient Instructions Indication:Non-smoker Start:24-Nov-2020 Instruction Type:Provider Instructions for Treatment How to access health informa tion online Indication:Non-smoker Start:25-Mar-2020 Instruction Type:Patient Education How to access health informa tion online - Detail Indication:Non-smoker Start:25-Mar-2020 Instruction Type:Patient Education Patient Instructions Indication:Non-smoker Start:25-Mar-2020 Instruction Type:Provider Instructions for Treatment How to access health informa tion online Indication:BMI 34.0-34.9,adult Start:11-Dec-2019 Instruction Type:Patient Education How to access health informa tion online - Detail Indication:BMI 34.0-34.9,adult Start:11-Dec-2019 Instruction Type:Patient Education Patient Instructions Indication:BMI 34.0-34.9,adult Start:11-Dec-2019 Instruction Type:Provider Instructions for Treatment How to access health informa tion online Indication:Pain of left calf Start:29-Nov-2018 Instruction Type:Patient Education How to access health informa tion online - Detail Indication:Pain of left calf Start:29-Nov-2018 Instruction Type:Patient Education Patient Instructions Indication:Pain of left calf Start:29-Nov-2018 Instruction Type:Provider Instructions for Treatment How to access health informa tion online Indication:Non-smoker Start:08-Jul-2018 Instruction Type:Patient Education How to access health informa tion online - Detail Indication:Non-smoker Start:08-Jul-2018 Instruction Type:Patient Education Patient Instructions Indication:Non-smoker Start:08-Jul-2018 Instruction Type:Provider Instructions for Treatment How to access health informa tion online Indication:Non-smoker Start:01-Mar-2017 Instruction Type:Patient Education Patient Instructions Indication:Non-smoker Start:01-Mar-2017 Instruction Type:Provider Instructions for Treatment Patient Instructions Indication:Dysthymic Start:17-Jul-2012 Instruction Type:Provider Instructions for Treatment [facility]; [facility] Work Phone: Instructions* Name Dates Details Patient Instructions Indication:Non-smoker Start:15-Sep-2021 Instruction Type:Provider Instructions for Treatment How to Access Health Informa tion Online using Patient Portal and [employer] Indication:Non-smoker Start:15-Sep-2021 Instruction Type:Patient Education Patient Instructions Indication:Non-smoker Start:22-Apr-2021 Instruction Type:Provider Instructions for Treatment How to Access Health Informa tion Online using Patient Portal and [employer] Indication:Non-smoker Start:22-Apr-2021 Instruction Type:Patient Education Patient Instructions Indication:Non-smoker Start:20-Apr-2021 Instruction Type:Provider Instructions for Treatment How to Access Health Informa tion Online using Patient Portal and [employer] Indication:Non-smoker Start:20-Apr-2021 Instruction Type:Patient Education How to Access Health Informa tion Online using Patient Portal and [employer] Indication:Non-smoker Start:24-Nov-2020 Instruction Type:Patient Education Patient Instructions Indication:Non-smoker Start:24-Nov-2020 Instruction Type:Provider Instructions for Treatment How to access health informa tion online Indication:Non-smoker Start:25-Mar-2020 Instruction Type:Patient Education How to access health informa tion online - Detail Indication:Non-smoker Start:25-Mar-2020 Instruction Type:Patient Education Patient Instructions Indication:Non-smoker Start:25-Mar-2020 Instruction Type:Provider Instructions for Treatment How to access health informa tion online Indication:BMI 34.0-34.9,adult Start:11-Dec-2019 Instruction Type:Patient Education How to access health informa tion online - Detail Indication:BMI 34.0-34.9,adult Start:11-Dec-2019 Instruction Type:Patient Education Patient Instructions Indication:BMI 34.0-34.9,adult Start:11-Dec-2019 Instruction Type:Provider Instructions for Treatment How to access health informa tion online Indication:Pain of left calf Start:29-Nov-2018 Instruction Type:Patient Education How to access health informa tion online - Detail Indication:Pain of left calf Start:29-Nov-2018 Instruction Type:Patient Education Patient Instructions Indication:Pain of left calf Start:29-Nov-2018 Instruction Type:Provider Instructions for Treatment How to access health informa tion online Indication:Non-smoker Start:08-Jul-2018 Instruction Type:Patient Education How to access health informa tion online - Detail Indication:Non-smoker Start:08-Jul-2018 Instruction Type:Patient Education Patient Instructions Indication:Non-smoker Start:08-Jul-2018 Instruction Type:Provider Instructions for Treatment How to access health informa tion online Indication:Non-smoker Start:01-Mar-2017 Instruction Type:Patient Education Patient Instructions Indication:Non-smoker Start:01-Mar-2017 Instruction Type:Provider Instructions for Treatment Patient Instructions Indication:Dysthymic Start:17-Jul-2012 Instruction Type:Provider Instructions for Treatment [facility] Work Phone: Instructions* Name Dates Details Patient Instructions Indication:Non-smoker Start:15-Dec-2021 Instruction Type:Provider Instructions for Treatment How to Access Health Informa tion Online using Patient Portal and [employer]rd [employer] Apps Indication:Non-smoker Start:15-Dec-2021 Instruction Type:Patient Education Patient Instructions Indication:Non-smoker Start:15-Sep-2021 Instruction Type:Provider Instructions for Treatment How to Access Health Informa tion Online using Patient Portal and [employer]rd [employer] Apps Indication:Non-smoker Start:15-Sep-2021 Instruction Type:Patient Education Patient Instructions Indication:Non-smoker Start:22-Apr-2021 Instruction Type:Provider Instructions for Treatment How to Access Health Informa tion Online using Patient Portal and [employer]rd [employer] Apps Indication:Non-smoker Start:22-Apr-2021 Instruction Type:Patient Education Patient Instructions Indication:Non-smoker Start:20-Apr-2021 Instruction Type:Provider Instructions for Treatment How to Access Health Informa tion Online using Patient Portal and [employer] Apps Indication:Non-smoker Start:20-Apr-2021 Instruction Type:Patient Education How to Access Health Informa tion Online using Patient Portal and [employer]rd [employer] Apps Indication:Non-smoker Start:24-Nov-2020 Instruction Type:Patient Education Patient Instructions Indication:Non-smoker Start:24-Nov-2020 Instruction Type:Provider Instructions for Treatment How to access health informa tion online Indication:Non-smoker Start:25-Mar-2020 Instruction Type:Patient Education How to access health informa tion online - Detail Indication:Non-smoker Start:25-Mar-2020 Instruction Type:Patient Education Patient Instructions Indication:Non-smoker Start:25-Mar-2020 Instruction Type:Provider Instructions for Treatment How to access health informa tion online Indication:BMI 34.0-34.9,adult Start:11-Dec-2019 Instruction Type:Patient Education How to access health informa tion online - Detail Indication:BMI 34.0-34.9,adult Start:11-Dec-2019 Instruction Type:Patient Education Patient Instructions Indication:BMI 34.0-34.9,adult Start:11-Dec-2019 Instruction Type:Provider Instructions for Treatment How to access health informa tion online Indication:Pain of left calf Start:29-Nov-2018 Instruction Type:Patient Education How to access health informa tion online - Detail Indication:Pain of left calf Start:29-Nov-2018 Instruction Type:Patient Education Patient Instructions Indication:Pain of left calf Start:29-Nov-2018 Instruction Type:Provider Instructions for Treatment How to access health informa tion online Indication:Non-smoker Start:08-Jul-2018 Instruction Type:Patient Education How to access health informa tion online - Detail Indication:Non-smoker Start:08-Jul-2018 Instruction Type:Patient Education Patient Instructions Indication:Non-smoker Start:08-Jul-2018 Instruction Type:Provider Instructions for Treatment How to access health informa tion online Indication:Non-smoker Start:01-Mar-2017 Instruction Type:Patient Education Patient Instructions Indication:Non-smoker Start:01-Mar-2017 Instruction Type:Provider Instructions for Treatment Patient Instructions Indication:Dysthymic Start:17-Jul-2012 Instruction Type:Provider Instructions for Treatment [facility] Work Phone: Instructions* Name Dates Details Patient Instructions Indication:Non-smoker Start:15-Dec-2021 Instruction Type:Provider Instructions for Treatment How to Access Health Informa tion Online using Patient Portal and [employer]rd [employer] Apps Indication:Non-smoker Start:15-Dec-2021 Instruction Type:Patient Education Patient Instructions Indication:Non-smoker Start:15-Sep-2021 Instruction Type:Provider Instructions for Treatment How to Access Health Informa tion Online using Patient Portal and [employer]rd [employer] Apps Indication:Non-smoker Start:15-Sep-2021 Instruction Type:Patient Education Patient Instructions Indication:Non-smoker Start:22-Apr-2021 Instruction Type:Provider Instructions for Treatment How to Access Health Informa tion Online using Patient Portal and [employer] Apps Indication:Non-smoker Start:22-Apr-2021 Instruction Type:Patient Education Patient Instructions Indication:Non-smoker Start:20-Apr-2021 Instruction Type:Provider Instructions for Treatment How to Access Health Informa tion Online using Patient Portal and [employer] Apps Indication:Non-smoker Start:20-Apr-2021 Instruction Type:Patient Education How to Access Health Informa tion Online using Patient Portal and [employer] Apps Indication:Non-smoker Start:24-Nov-2020 Instruction Type:Patient Education Patient Instructions Indication:Non-smoker Start:24-Nov-2020 Instruction Type:Provider Instructions for Treatment How to access health informa tion online Indication:Non-smoker Start:25-Mar-2020 Instruction Type:Patient Education How to access health informa tion online - Detail Indication:Non-smoker Start:25-Mar-2020 Instruction Type:Patient Education Patient Instructions Indication:Non-smoker Start:25-Mar-2020 Instruction Type:Provider Instructions for Treatment How to access health informa tion online Indication:BMI 34.0-34.9,adult Start:11-Dec-2019 Instruction Type:Patient Education How to access health informa tion online - Detail Indication:BMI 34.0-34.9,adult Start:11-Dec-2019 Instruction Type:Patient Education Patient Instructions Indication:BMI 34.0-34.9,adult Start:11-Dec-2019 Instruction Type:Provider Instructions for Treatment How to access health informa tion online Indication:Pain of left calf Start:29-Nov-2018 Instruction Type:Patient Education How to access health informa tion online - Detail Indication:Pain of left calf Start:29-Nov-2018 Instruction Type:Patient Education Patient Instructions Indication:Pain of left calf Start:29-Nov-2018 Instruction Type:Provider Instructions for Treatment How to access health informa tion online Indication:Non-smoker Start:08-Jul-2018 Instruction Type:Patient Education How to access health informa tion online - Detail Indication:Non-smoker Start:08-Jul-2018 Instruction Type:Patient Education Patient Instructions Indication:Non-smoker Start:08-Jul-2018 Instruction Type:Provider Instructions for Treatment How to access health informa tion online Indication:Non-smoker Start:01-Mar-2017 Instruction Type:Patient Education Patient Instructions Indication:Non-smoker Start:01-Mar-2017 Instruction Type:Provider Instructions for Treatment Patient Instructions Indication:Dysthymic Start:17-Jul-2012 Instruction Type:Provider Instructions for Treatment [facility] Work Phone: Instructions* Name Dates Details Patient Instructions Indication:Non-smoker Start:15-Dec-2021 Instruction Type:Provider Instructions for Treatment How to Access Health Informa tion Online using Patient Portal and [employer]rd [employer] Apps Indication:Non-smoker Start:15-Dec-2021 Instruction Type:Patient Education Patient Instructions Indication:Non-smoker Start:15-Sep-2021 Instruction Type:Provider Instructions for Treatment How to Access Health Informa tion Online using Patient Portal and [employer]rd [employer] Apps Indication:Non-smoker Start:15-Sep-2021 Instruction Type:Patient Education Patient Instructions Indication:Non-smoker Start:22-Apr-2021 Instruction Type:Provider Instructions for Treatment How to Access Health Informa tion Online using Patient Portal and [employer]rd [employer] Apps Indication:Non-smoker Start:22-Apr-2021 Instruction Type:Patient Education Patient Instructions Indication:Non-smoker Start:20-Apr-2021 Instruction Type:Provider Instructions for Treatment How to Access Health Informa tion Online using Patient Portal and [employer]rd [employer] Apps Indication:Non-smoker Start:20-Apr-2021 Instruction Type:Patient Education How to Access Health Informa tion Online using Patient Portal and [employer]rd [employer] Apps Indication:Non-smoker Start:24-Nov-2020 Instruction Type:Patient Education Patient Instructions Indication:Non-smoker Start:24-Nov-2020 Instruction Type:Provider Instructions for Treatment How to access health informa tion online Indication:Non-smoker Start:25-Mar-2020 Instruction Type:Patient Education How to access health informa tion online - Detail Indication:Non-smoker Start:25-Mar-2020 Instruction Type:Patient Education Patient Instructions Indication:Non-smoker Start:25-Mar-2020 Instruction Type:Provider Instructions for Treatment How to access health informa tion online Indication:BMI 34.0-34.9,adult Start:11-Dec-2019 Instruction Type:Patient Education How to access health informa tion online - Detail Indication:BMI 34.0-34.9,adult Start:11-Dec-2019 Instruction Type:Patient Education Patient Instructions Indication:BMI 34.0-34.9,adult Start:11-Dec-2019 Instruction Type:Provider Instructions for Treatment How to access health informa tion online Indication:Pain of left calf Start:29-Nov-2018 Instruction Type:Patient Education How to access health informa tion online - Detail Indication:Pain of left calf Start:29-Nov-2018 Instruction Type:Patient Education Patient Instructions Indication:Pain of left calf Start:29-Nov-2018 Instruction Type:Provider Instructions for Treatment How to access health informa tion online Indication:Non-smoker Start:08-Jul-2018 Instruction Type:Patient Education How to access health informa tion online - Detail Indication:Non-smoker Start:08-Jul-2018 Instruction Type:Patient Education Patient Instructions Indication:Non-smoker Start:08-Jul-2018 Instruction Type:Provider Instructions for Treatment How to access health informa tion online Indication:Non-smoker Start:01-Mar-2017 Instruction Type:Patient Education Patient Instructions Indication:Non-smoker Start:01-Mar-2017 Instruction Type:Provider Instructions for Treatment Patient Instructions Indication:Dysthymic Start:17-Jul-2012 Instruction Type:Provider Instructions for Treatment [facility] Work Phone: reason for referral (narrative)* Diagnostic Procedure Only (Routine) - Closed Specialty Diagnoses / Procedures Referred By Ryan richards Referred To Contact [facility] Diagnoses Encounter for screening mammogram for breast cancer Procedures ZE SCREENING SCREENING MAMMOGRAPHY BI 2-VIEW BREAST INC Gricelda Jackson APRN.[facility] [address] [place] [address] [facility] [address] [place] [address] Referral ID Status Reason Start Date Expiration Date V isits Requested Visits Authorized [id number] Closed Auto-Generate d Referral 10/17/2022 11/16/2023 1 1 [facility] for visit Narrative* Diagnostic Procedure Only (Routine) - Closed Specialty Diagnoses / Procedures Referred By Ryan richards Referred To Contact [facility] Diagnoses Encounter for screening mammogram for breast cancer Procedures ZE SCREENING SCREENING MAMMOGRAPHY BI 2-VIEW BREAST INC Gricelda Jackson APRN.[facility] [address] [place] [address] Imaging [address] [place] [address] Referral ID Status Reason Start Date Expiration Date V isits Requested Visits Authorized [id number] Closed Auto-Generate d Referral 10/17/2022 11/16/2023 1 1 [facility] Family History No Family History Records FoundUnknown Family Member Name Dates Details Cancer Status:Active Depression GALLARDO Status:Active Diabetes Mellitus Status:Active Family Members In General Comments:Ulcer disease Status:Active Hypercholesterolemia Status:Active Hypertension Status:Active Unknown Family Member Name Dates Details Cancer Status:Active Depression GALLARDO Status:Active Diabetes Mellitus Status:Active Family Members In General Comments:Ulcer disease Status:Active Hypercholesterolemia Status:Active Hypertension Status:Active Unknown Family Member Name Dates Details Cancer Status:Active Depression GALLARDO Status:Active Diabetes Mellitus Status:Active Family Members In General Comments:Ulcer disease Status:Active Hypercholesterolemia Status:Active Hypertension Status:Active Unknown Family Member Name Dates Details Cancer Status:Active Depression GALLARDO Status:Active Diabetes Mellitus Status:Active Family Members In General Comments:Ulcer disease Status:Active Hypercholesterolemia Status:Active Hypertension Status:Active Unknown Family Member Name Dates Details Cancer Status:Active Depression GALLAROD Status:Active Diabetes Mellitus Status:Active Family Members In General Comments:Ulcer disease Status:Active Hypercholesterolemia Status:Active Hypertension Status:Active Unknown Family Member Name Dates Details Cancer Status:Active Depression GALLARDO Status:Active Diabetes Mellitus Status:Active Family Members In General Comments:Ulcer disease Status:Active Hypercholesterolemia Status:Active Hypertension Status:Active Unknown Family Member Name Dates Details Cancer Status:Active Depression GALLARDO Status:Active Diabetes Mellitus Status:Active Family Members In General Comments:Ulcer disease Status:Active Hypercholesterolemia Status:Active Hypertension Status:Active Unknown Family Member Name Dates Details Cancer Status:Active Depression GALLARDO Status:Active Diabetes Mellitus Status:Active Family Members In General Comments:Ulcer disease Status:Active Hypercholesterolemia Status:Active Hypertension Status:Active Unknown Family Member Name Dates Details Cancer Status:Active Depression GALLARDO Status:Active Diabetes Mellitus Status:Active Family Members In General Comments:Ulcer disease Status:Active Hypercholesterolemia Status:Active Hypertension Status:Active Unknown Family Member Name Dates Details Cancer Status:Active Depression GALLARDO Status:Active Diabetes Mellitus Status:Active Family Members In General Comments:Ulcer disease Status:Active Hypercholesterolemia Status:Active Hypertension Status:Active Unknown Family Member Name Dates Details Cancer Status:Active Depression GALLARDO Status:Active Diabetes Mellitus Status:Active Family Members In General Comments:Ulcer disease Status:Active Hypercholesterolemia Status:Active Hypertension Status:Active Unknown Family Member Name Dates Details Cancer Status:Active Depression GALLARDO Status:Active Diabetes Mellitus Status:Active Family Members In General Comments:Ulcer disease Status:Active Hypercholesterolemia Status:Active Hypertension Status:Active Unknown Family Member Name Dates Details Cancer Status:Active Depression GALLARDO Status:Active Diabetes Mellitus Status:Active Family Members In General Comments:Ulcer disease Status:Active Hypercholesterolemia Status:Active Hypertension Status:Active Unknown Family Member Name Dates Details Cancer Status:Active Depression GALLARDO Status:Active Diabetes Mellitus Status:Active Family Members In General Comments:Ulcer disease Status:Active Hypercholesterolemia Status:Active Hypertension Status:Active Unknown Family Member Name Dates Details Cancer Status:Active Depression GALLARDO Status:Active Diabetes Mellitus Status:Active Family Members In General Comments:Ulcer disease Status:Active Hypercholesterolemia Status:Active Hypertension Status:Active Instructions Name Dates Details Non-smoker : How to access h ealth information online Indication:Non-smoker Non-smoker : How to access h ealth information online - Detail Indication:Non-smoker Non-smoker : Patient Instruc tions Indication:Non-smoker Dysthymic : Patient Instruct ions Indication:Dysthymic Name Dates Details How to access health informa tion online Indication:Pain of left calf Start:29-Nov-2018 Instruction Type:Patient Education How to access health informa tion online - Detail Indication:Pain of left calf Start:29-Nov-2018 Instruction Type:Patient Education Patient Instructions Indication:Pain of left calf Start:29-Nov-2018 Instruction Type:Provider Instructions for Treatment How to access health informa tion online Indication:Non-smoker Start:08-Jul-2018 Instruction Type:Patient Education How to access health informa tion online - Detail Indication:Non-smoker Start:08-Jul-2018 Instruction Type:Patient Education Patient Instructions Indication:Non-smoker Start:08-Jul-2018 Instruction Type:Provider Instructions for Treatment How to access health informa tion online Indication:Non-smoker Start:01-Mar-2017 Instruction Type:Patient Education Patient Instructions Indication:Non-smoker Start:01-Mar-2017 Instruction Type:Provider Instructions for Treatment Patient Instructions Indication:Dysthymic Start:17-Jul-2012 Instruction Type:Provider Instructions for Treatment Name Dates Details How to access health informa tion online Indication:BMI 34.0-34.9,adult Start:11-Dec-2019 Instruction Type:Patient Education How to access health informa tion online - Detail Indication:BMI 34.0-34.9,adult Start:11-Dec-2019 Instruction Type:Patient Education Patient Instructions Indication:BMI 34.0-34.9,adult Start:11-Dec-2019 Instruction Type:Provider Instructions for Treatment How to access health informa tion online Indication:Pain of left calf Start:29-Nov-2018 Instruction Type:Patient Education How to access health informa tion online - Detail Indication:Pain of left calf Start:29-Nov-2018 Instruction Type:Patient Education Patient Instructions Indication:Pain of left calf Start:29-Nov-2018 Instruction Type:Provider Instructions for Treatment How to access health informa tion online Indication:Non-smoker Start:08-Jul-2018 Instruction Type:Patient Education How to access health informa tion online - Detail Indication:Non-smoker Start:08-Jul-2018 Instruction Type:Patient Education Patient Instructions Indication:Non-smoker Start:08-Jul-2018 Instruction Type:Provider Instructions for Treatment How to access health informa tion online Indication:Non-smoker Start:01-Mar-2017 Instruction Type:Patient Education Patient Instructions Indication:Non-smoker Start:01-Mar-2017 Instruction Type:Provider Instructions for Treatment Patient Instructions Indication:Dysthymic Start:17-Jul-2012 Instruction Type:Provider Instructions for Treatment Name Dates Details How to access health informa tion online Indication:BMI 34.0-34.9,adult Start:11-Dec-2019 Instruction Type:Patient Education How to access health informa tion online - Detail Indication:BMI 34.0-34.9,adult Start:11-Dec-2019 Instruction Type:Patient Education Patient Instructions Indication:BMI 34.0-34.9,adult Start:11-Dec-2019 Instruction Type:Provider Instructions for Treatment How to access health informa tion online Indication:Pain of left calf Start:29-Nov-2018 Instruction Type:Patient Education How to access health informa tion online - Detail Indication:Pain of left calf Start:29-Nov-2018 Instruction Type:Patient Education Patient Instructions Indication:Pain of left calf Start:29-Nov-2018 Instruction Type:Provider Instructions for Treatment How to access health informa tion online Indication:Non-smoker Start:08-Jul-2018 Instruction Type:Patient Education How to access health informa tion online - Detail Indication:Non-smoker Start:08-Jul-2018 Instruction Type:Patient Education Patient Instructions Indication:Non-smoker Start:08-Jul-2018 Instruction Type:Provider Instructions for Treatment How to access health informa tion online Indication:Non-smoker Start:01-Mar-2017 Instruction Type:Patient Education Patient Instructions Indication:Non-smoker Start:01-Mar-2017 Instruction Type:Provider Instructions for Treatment Patient Instructions Indication:Dysthymic Start:17-Jul-2012 Instruction Type:Provider Instructions for Treatment Name Dates Details How to access health informa tion online Indication:Non-smoker Start:25-Mar-2020 Instruction Type:Patient Education How to access health informa tion online - Detail Indication:Non-smoker Start:25-Mar-2020 Instruction Type:Patient Education Patient Instructions Indication:Non-smoker Start:25-Mar-2020 Instruction Type:Provider Instructions for Treatment How to access health informa tion online Indication:BMI 34.0-34.9,adult Start:11-Dec-2019 Instruction Type:Patient Education How to access health informa tion online - Detail Indication:BMI 34.0-34.9,adult Start:11-Dec-2019 Instruction Type:Patient Education Patient Instructions Indication:BMI 34.0-34.9,adult Start:11-Dec-2019 Instruction Type:Provider Instructions for Treatment How to access health informa tion online Indication:Pain of left calf Start:29-Nov-2018 Instruction Type:Patient Education How to access health informa tion online - Detail Indication:Pain of left calf Start:29-Nov-2018 Instruction Type:Patient Education Patient Instructions Indication:Pain of left calf Start:29-Nov-2018 Instruction Type:Provider Instructions for Treatment How to access health informa tion online Indication:Non-smoker Start:08-Jul-2018 Instruction Type:Patient Education How to access health informa tion online - Detail Indication:Non-smoker Start:08-Jul-2018 Instruction Type:Patient Education Patient Instructions Indication:Non-smoker Start:08-Jul-2018 Instruction Type:Provider Instructions for Treatment How to access health informa tion online Indication:Non-smoker Start:01-Mar-2017 Instruction Type:Patient Education Patient Instructions Indication:Non-smoker Start:01-Mar-2017 Instruction Type:Provider Instructions for Treatment Patient Instructions Indication:Dysthymic Start:17-Jul-2012 Instruction Type:Provider Instructions for Treatment Name Dates Details Non-smoker : How to access [employer] information online Indication:Non-smoker Non-smoker : How to access [employer] information online - Detail Indication:Non-smoker Non-smoker : Patient Instruc tions Indication:Non-smoker Dysthymic : Patient Instruct ions Indication:Dysthymic Summary Purpose Advance Directives No Advanced Directives Records FoundNo Advanced Directives Records FoundNo Advanced Directives Records Found Medications Administered Section Active Administered Medications - up to 3 most recent administrations Medication Order MAR Action Action Date Dose Rate Site fluorescein-benoxinate 0.25-0.4 % 1 Drop (FLURESS) 1 Drop, BOTH EYES, DIRECTED, Starting on Marina 02/23/22 at 0834, Until Marina 02/23/22 at 2032, Administer for applanation tonometry. In the event of a Fluress shortage, administer 1 drop of Cecil-Fluor into both eyes as directed for applanation tonometry., [facility] MED ORDERS Given 02/23/2022 9:05 AM EDT 1 Drop PHENYLephrine 2.5 % 1 Drop (AK-DILATE, ECHO-SYNEPHRINE) 1 Drop, BOTH EYES, DIRECTED, Starting on Marina 02/23/22 at 0834, Until Marina 02/23/22 at 2032, Administer for dilation PROTECT FROM LIGHT, [facility] MED ORDERS Given 02/23/2022 9:07 AM EDT 1 Drop tropicamide 1 % 1 Drop (MYDRIACYL) 1 Drop, BOTH EYES, DIRECTED, Starting on Marina 02/23/22 at 0834, Until Marina 02/23/22 at 2032, Administer for dilation, [facility] MED ORDERS Given 02/23/2022 9:07 AM EDT 1 Drop Active Administered Medications - up to 3 most recent administrations Medication Order MAR Action Action Date Dose Rate Site fluorescein-benoxinate 0.25-0.4 % 1 Drop (FLURESS) 1 Drop, BOTH EYES, DIRECTED, Starting on Marina 08/17/22 at 0800, Until Marina 08/17/22 at 1959, Administer for applanation tonometry. In the event of a Fluress shortage, administer 1 drop of Cecil-Fluor into both eyes as directed for applanation tonometry., [facility] MED ORDERS Given 08/17/2022 8:00 AM EST 1 Drop PHENYLephrine 2.5 % 1 Drop (AK-DILATE, ECHO-SYNEPHRINE) 1 Drop, BOTH EYES, DIRECTED, Starting on Marina 08/17/22 at 0800, Until Marina 08/17/22 at 1958, Administer for dilation PROTECT FROM LIGHT, [facility] MED ORDERS Given 08/17/2022 8:00 AM EST 1 Drop proparacaine 0.5 % 1 Drop (ALCAINE) 1 Drop, BOTH EYES, DIRECTED, Starting on Marina 08/17/22 at 0800, Until Marina 08/17/22 at 1958, Administer for pneumo tonometry, tonopen tonometry, or pachymetry. In the event of a proparacaine shortage, administer 1 drop of tetracaine 0.5% ophthalmic drops into both eyes as directed for pneumo tonometry, tonopen tonometry, or pachymetry, [facility] MED ORDERS Given 08/17/2022 8:00 AM EST 1 Drop tropicamide 1 % 1 Drop (MYDRIACYL) 1 Drop, BOTH EYES, DIRECTED, Starting on Marina 08/17/22 at 0800, Until Marina 08/17/22 at 1958, Administer for dilation, [facility] MED ORDERS Given 08/17/2022 8:00 AM EST 1 Drop Reason for Referral Specialty Diagnoses / Procedures Referred By Ryan richards Referred To Contact Diagnoses Pigmentary retinal dystrophy Procedures CONSULT TO OPHTHALMIC GENETIC COUNSELING MEDICAL GENETICS COUNSELING EACH 30 MINUTES Jose Gill MD, PhD [address] [place] [address] [place] [address] Referral ID Status Reason Start Date Expiration Date Visits Requested Visits Authorized [id number] Pending Review PCP Requested Referral Auto-Generate d Referral 05/18/2022 05/18/2023 1 1 Specialty Diagnoses / Procedures Referred By Ryan richards Referred To Contact Diagnoses Screening for cervical cancer Procedures CONSULT TO MECHANICAL DRAFTER OFFICE/OUTPATIENT [facility] 60-74 MINUTES Gricelda Barbosa, MANAGER [employer] [address] [place] [address] Referral ID Status Reason Start Date Expiration Date Visits Requested Visits Authorized [id number] Pending Review PCP Requested Referral Auto-Generate d Referral 10/17/2022 10/17/2023 1 1 Specialty Diagnoses / Procedures Referred By Contleidy t Referred To Contact [facility] Diagnoses Encounter for screening mammogram for breast cancer Procedures ZE SCREENING SCREENING MAMMOGRAPHY BI 2-VIEW BREAST INC CAD Gricelda Barbosa, MANAGER [employer] [address] [place] [address] [facility] [address] [place] [address] Referral ID Status Reason Start Date Expiration Date Visits Requested Visits Authorized [id number] Pending Review Auto-Generat ed Referral 10/17/2022 11/16/2023 1 1 Additional Source Comments INFORMATION SOURCE (unrecogn ized section and content) DATE CREATED AUTHOR AUTHOR'S ORGANIZ ATION 09/28/2022 [facility] DATE CREATED AUTHOR AUTHOR'S ORGANIZ ATION 05/31/2023 [facility] Source Comments (unrecognize d section and content) In the event this informatio n is protected by the Federal Confidentiality of Alcohol and Drug Abuse Patient Records regulations: The Federal rules restrict any use of the information to criminally investigate or prosecute any alcohol or drug abuse patient.[facility] the event this information is protected by the Federal Confidentiality of Alcohol and Drug Abuse Patient Records regulations: The Federal rules restrict any use of the information to criminally investigate or prosecute any alcohol or drug abuse patient.[facility] the event this information is protected by the Federal Confidentiality of Alcohol and Drug Abuse Patient Records regulations: The Federal rules restrict any use of the information to criminally investigate or prosecute any alcohol or drug abuse patient.[facility] the event this information is protected by the Federal Confidentiality of Alcohol and Drug Abuse Patient Records regulations: The Federal rules restrict any use of the information to criminally investigate or prosecute any alcohol or drug abuse patient.[facility] the event this information is protected by the Federal Confidentiality of Alcohol and Drug Abuse Patient Records regulations: The Federal rules restrict any use of the information to criminally investigate or prosecute any alcohol or drug abuse patient.[facility] the event this information is protected by the Federal Confidentiality of Alcohol and Drug Abuse Patient Records regulations: The Federal rules restrict any use of the information to criminally investigate or prosecute any alcohol or drug abuse patient.[facility] Center[facility] the event this information is protected by the Federal Confidentiality of Alcohol and Drug Abuse Patient Records regulations: The Federal rules restrict any use of the information to criminally investigate or prosecute any alcohol or drug abuse patient.[facility] Center[facility] the event this information is protected by the Federal Confidentiality of Alcohol and Drug Abuse Patient Records regulations: The Federal rules restrict any use of the information to criminally investigate or prosecute any alcohol or drug abuse patient.[facility] the event this information is protected by the Federal Confidentiality of Alcohol and Drug Abuse Patient Records regulations: The Federal rules restrict any use of the information to criminally investigate or prosecute any alcohol or drug abuse patient.[facility] Center[facility] the event this information is protected by the Federal Confidentiality of Alcohol and Drug Abuse Patient Records regulations: The Federal rules restrict any use of the information to criminally investigate or prosecute any alcohol or drug abuse patient.[facility] Reason for Visit (unrecogniz ed section and content) 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 Diagnoses / Procedures Referred By Ryan richards Referred To Contact Diagnoses Pigmentary retinal dystrophy Procedures CONSULT TO OPHTHALMIC GENETIC COUNSELING MEDICAL GENETICS COUNSELING EACH 30 MINUTES Jose Gill MD, PhD [address] [place] [address] [address] Referral ID Status Reason Start Date Expiration Date Visits Requested Visits Authorized [id number] Pending Review PCP Requested Referral Auto-Generate d Referral 05/18/2022 05/18/2023 1 1 Reason Comments Visual Changes Both Eyes Reason Comments Pattern dystrophy PRPH2, 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 Reason Comments Establish Care Reason Comments Urinary Problem Burning, frequency, pain, pressure, hematuria x 3 days Reason Comments F/U 6 months New to [facility] Care Teams (unrecognized sec tion and content) Health Education Coordinator Relationship Specialty Start Date End Date Carline Pratt DO PCP - General Internal Medicine 04/12/11 Health Education Coordinator Relationship Specialty Start Date End Date Carline Pratt DO PCP - General Internal Medicine 04/12/11 Health Education Coordinator Relationship Specialty Start Date End Date Carline Pratt DO PCP - General Internal Medicine 04/12/11 Health Education Coordinator Relationship Specialty Start Date End Date Eula Arias MD [address] [place], [place] [id number] PCP - General Internal Medicine 10/17/22 Health Education Coordinator Relationship Specialty Start Date End Date Eula Arias MD [address] [place], [place] [id number] PCP - General Internal Medicine 10/17/22 Health Education Coordinator Relationship Specialty Start Date End Date Eula Arias MD [address] [place] [address] PCP - General Internal Medicine 10/17/22 Health Education Coordinator Relationship Specialty Start Date End Date Eula Arias MD [address] [place], [place] [id number] PCP - General Internal Medicine 10/17/22 Health Education Coordinator Relationship Specialty Start Date End Date Eula Airas MD [address] [place], [place] [id number] PCP - General Internal Medicine 10/17/22 FOR RECORDS PERTAINING TO PATIENTS WHO ARE OR HAVE BEEN ENROLLED IN A CHEMICAL DEPENDENCY/SUBSTANCEABUSE PROGRAM, SOME INFORMATION MAY BE OMITTED. This clinical summary was aggregated from multiple sources. Caution should be exercised in using it in the provision of clinical care. This summary normalizes information from multiple sources, and as a consequence, information in this document may materially change the coding, format and clinical context of patient data. In addition, data may be omitted in some cases. CLINICAL DECISIONS SHOULD BE BASED ON THE PRIMARY CLINICAL RECORDS. [facility]. provides no warranty or guarantee of the accuracy or completeness of information in this document.
== END | disposition home or self-care (01) ==
PROVIDERS: PCP Internal Medicine; Referring Provider Internal Medicine; Visit Provider Internal Medicine
DX: R10.32 Left lower quadrant pain (principal)
CPT/HCPCS: 74176

== ENCOUNTER → 2023-10-16 | Outpatient (CLI) | payer OTHER, SELFPAY ==
--- NOTE | 2023-10-16 07:11 | BI_ITS ---
MAMMOGRAPHY - BILATERAL SCREENING REASON FOR EXAM: Female, 58 years old. Routine annual screening examination. PERTINENT HISTORY: Sister with breast cancer. TECHNIQUE: Digital bilateral breast maris (3D mammographic acquisition) in the CC and MLO projections. 2-D mediolateral oblique (MLO) and craniocaudad (CC) views of both breasts were obtained. CAD: Full Field Digital Mammography with Computer Added Detection was performed. COMPARISON: Comparison is made with prior outside examination dated October 19, 2022 and September 22, 2021. FINDINGS: Breast Composition: There are scattered areas of fibroglandular density. There are no dominant masses or suspicious calcifications. Stable asymmetry of breast tissue where more breast tissue is seen in the upper lateral aspect of the left breast as compared to the right side. Stable small bilateral axillary lymph nodes. No other significant abnormalities are identified. There has been no significant change since the prior study. BI/SCRN MAMM (CAD)W/MARIS BILAT IMPRESSION: Stable bilateral screening mammogram. Yearly follow-up mammogram recommended. (A) ASSESSMENT CATEGORY: BIRADS Category 2: Benign. A letter regarding these results will be sent to the patient by the facility within 30 days. Approximately 10% of breast cancers are not detected by mammography. A normal mammogram should not delay biopsy of a clinically suspicious abnormality. [id number] Electronically Signed: Lemuel Ribeiro MD at 8:53 EDT ,
== END | disposition home or self-care (01) ==
LOC: OPBI 07:11
PROVIDERS: PCP Internal Medicine; Referring Provider Internal Medicine; Visit Provider Internal Medicine
DX: Z12.31 Encounter for screening mammogram for malignant neoplasm of breast (principal)
CPT/HCPCS: 77063; 77067